=== PATIENT | male | born 1995 | race Caucasian/White ===

== ENCOUNTER → 2021-03-07 08:05 | Outpatient (CLI) | payer OTHER, SELFPAY ==
[2021-03-07] MEDS: COVID-19 VACC #1, MRNA(MOD) 100 MCG/0.5 ML VIAL IM (08:13)
== END ==
PROVIDERS: Visit Provider Internal Medicine
DX: Z23 Encounter for immunization (principal)
CPT/HCPCS: 0011A; 91301

== ENCOUNTER → 2021-04-12 08:04 | Outpatient (CLI) | payer OTHER, SELFPAY ==
[2021-04-12] MEDS: COVID-19 VACC #2, MRNA(MOD) 100 MCG/0.5 ML VIAL IM (08:18)
== END ==
PROVIDERS: Visit Provider Internal Medicine
DX: Z23 Encounter for immunization (principal)
CPT/HCPCS: 0012A; 91301

== ENCOUNTER 2022-10-20 09:13 | Emergency (ER) | payer OTHER, MEDICAID, SELFPAY ==
[2022-10-20 09:21] VITALS: BP 127/76; PULSE 118; RESP 24; TEMP 37.2; O2SAT 97; BMI 21.9
[2022-10-20 10:37] LABS: Influenza A - CEPHEID Flu A NEGATIVE (NEGATIVE); Influenza B - CEPHEID Flu B NEGATIVE (NEGATIVE); Respiratory Syncytial Virus Negative (Negative)
[2022-10-20 10:42] LABS: COVID-19 CEPHEID 4-PLEX PCR Negative (Negative)
--- NOTE | 2022-10-20 11:07 | ED.NAVMDI ---
HPI - Nausea/Vomiting/Diarrhea General Chief complaint: Nausea/Vomiting/Diarrhea Stated complaint: no appetite, mucus in stool, SOB, Insomia, anxiety Time Seen by Provider: 10/20/22 11:07 Source: patient Mode of arrival: Ambulatory History of Present Illness HPI Narrative: Patient is a 27-year-old male who does suffer from anxiety presents today with about 1 week of diarrhea and nausea. He is reports significant decreased oral intake but is tolerating quite a bit of water. Had mucousy like diarrhea ongoing for more than a week. He said this morning it was significantly more. He denies any blood. He and his partner both got similar symptoms after eating take out. He denies any headache fever. He sometimes feels short of breath. He is noted to be mildly tachycardic. He overall is extremely anxious and nervous that something more severe might be going on. Related Data Previous Rx's Medication Instructions Recorded hydroxyzine HCl 25 mg tablet 50 mg PO BEDTIME PRN anxiety #60 06/20/21 tabs ondansetron 4 mg disintegrating 4 mg PO Q8H PRN nausea and 10/20/22 tablet vomiting #10 tabs Allergies Allergy/AdvReac Type Severity Reaction Status Date / Time No Known Drug Allergies Allergy Verified 10/20/22 09:27 Review of Systems Review of Systems Narrative: GENERAL: Denies chills, fatigue, malaise, fever, sweats, travel HEENT: Denies sinus pain, ear pain, sore throat, difficulty swallowing, neck pain RESPIRATORY: Denies dyspnea, cough, wheezing, hemoptysis, sputum. CARDIOVASCULAR: Denies chest pain, palpitations, orthopnea, edema GASTROINTESTINAL: See HPI : Denies dysuria, frequency, incontinence, hematuria, urinary retention, flank pain. MUSCULOSKELETAL: Denies weakness, joint pain, or bony pain SKIN: No rash, no erythema, no pruritus NEUROLOGIC: Denies weakness, dizziness, headache, numbness, change in speech, confusion PSYCHIATRIC: No concerning psychosocial issues. 12 point review of systems is negative except for those stated above and HPI Patient History Medical History Anxiety (~2008) Depression (~2008) Obsessive compulsive disorder Family History Father Depression Mental health problem Mother Mental health problem Hypertension History of bipolar disorder Grandmother Hypertension Mental health problem Grandmother Mental health problem Social History Smoking Status: Former smoker alcohol intake: never substance use type: does not use Smoking Status: Former smoker alcohol intake frequency: other Substance Use Type: does not use Exam Initial Vital Signs Initial Vital Signs: Vital Signs Temperature 98.9 F 10/20/22 09:21 Pulse Rate 118 H 10/20/22 09:21 Respiratory Rate 24 10/20/22 09:21 Blood Pressure 127/76 10/20/22 09:21 Pulse Oximetry 97 10/20/22 09:21 Oxygen Delivery Method 10/20/22 09:21 GENERAL: Alert anxious 27-year-old male HEENT: Head atraumatic,EOMI, pupils reactive, face symmetric, moist mucous membranes CARDIOVASCULAR: Mildly tachycardic no murmurs RESPIRATORY: Breath sounds equal bilaterally, no wheezes rales or rhonchi. ABDOMEN: Soft, nontender. Normoactive bowel sounds all 4 quadrants. No guarding or rebound. EXTREMITIES: Normal range of motion, no clubbing or edema. Neurovascularly intact NEUROLOGICAL: Alert and oriented x4.Normal gait and speech. SKIN: Warm, dry, no laceration, no petechiae, no rashes or lesions. Course Orders Ordered: ED Orders 10/20/22 11:16 Chest [XR chest 1V] Stat 10/20/22 11:20 CBC Auto Diff [Complete Blood Count AUTO DIFF] Stat CMP [Comprehensive Metabolic Panel] Stat GI Panel (Film Array) Stat Discontinued Medications Lorazepam (Lorazepam 2 Mg/Ml Inj) 0.5 mg IV NOW ONE Stop: 10/20/22 11:19 Last Admin: 10/20/22 11:38 Dose: 0.5 mg Documented By: KEN Vital Signs Vital signs: Vital Signs - 8 hr 10/20/22 11:36 10/20/22 11:40 10/20/22 11:40 Pulse Rate 100 H 113 H Respiratory Rate Blood Pressure 133/73 Pulse Oximetry 98 100 Oxygen Delivery Method Room Air 10/20/22 12:42 Pulse Rate 95 H Respiratory Rate 16 Blood Pressure 121/75 Pulse Oximetry 98 Oxygen Delivery Method Room Air MDM - Nausea/Vomiting/Diarrhea Lab Data Result diagrams: 10/20/22 11:20 10/20/22 11:20 Labs: Lab Results 10/20/22 10/20/22 10/20/22 Range/Units 09:32 11:20 11:20 WBC 9.8 (4.5-11.0) X10^3/uL RBC 4.94 (4.5-5.9) X10^6/uL Hgb 13.9 (13.5-17.5) g/dL Hct 42.4 (41-53) % MCV 85.8 (80-100) fL MCH 28.1 (26-34) PG MCHC 32.8 (30-36) % RDW 13.2 (11.6-14.8) % Plt Count 270 (150-400) X10^3/uL Neut % (Auto) 68.0 (50-75) % Lymph % (Auto) 19.6 L (25-40) % [place] % (Auto) 11.1 (3-14) % Eos % (Auto) 0.7 L (2-4) % Baso % (Auto) 0.6 (0-2) % Neut # (Auto) 6700 (9034-0832) /uL Lymph # (Auto) 1900 (5465-5819) /uL [place] # (Auto) 1100 H (0-900) /uL Eos # (Auto) 100 (0-450) /uL Baso # (Auto) 100 (0-100) /uL Sodium 139 (137-145) mmol/L Potassium 3.6 (3.4-5.1) mmol/L Chloride 102 (98-107) mmol/L Carbon Dioxide 24 (22-32) mmol/L BUN 13 (9-20) mg/dL Creatinine 0.65 L (0.66-1.25) mg/dL Estimated GFR > 60 (>60) mL/min BUN/Creatinine Ratio 20.0 (6-22) Glucose 100 (70-100) mg/dL Calcium 9.5 (8.4-10.2) mg/dL Total Bilirubin 1.1 (0.2-1.3) mg/dL AST 24 (17-59) IU/L ALT 23 (<50) IU/L Alkaline Phosphatase 72 (38-126) U/L Total Protein 8.7 H (6.3-8.2) g/dL Albumin 5.0 (3.5-5.0) g/dL Globulin 3.7 (1.7-4.1) g/dL Albumin/Globulin Ratio 1.4 (1.0-2.8) Stl C. cayetanensis PCR (Not Detect) Stool Rotavirus (PCR) (Not Detect) Stool Adenovirus (PCR) (Not Detect) Stool Astrovirus (PCR) (Not Detect) Stool Cryptosporidium PCR (Not Detect) Stl E.coli Shiga Tox PCR (Not Detect) St Sh/Enteroin Ecoli PCR (Not Detect) Stool E coli O157 PCR Stl Enterotoxigenic E PCR (Not Detect) Stool EPEC (PCR) (Not Detect) Stl E. histolytica PCR (Not Detect) Stool Giardia Lamblia PCR (Not Detect) Stool Sapovirus (PCR) (Not Detect) Stl P. shigelloides PCR (Not Detect) St Y.enterocolitica PCR (Not Detect) Stool Vibrio (PCR) (Not Detect) Stl Vibrio cholerae PCR (Not Detect) Stl Enteroaggr Ecoli PCR (Not Detect) Stl Norovirus GI/GII PCR (Not Detect) Campylobacter (PCR) (Not Detect) C. difficile Tox (PCR) (Not Detect) SARS-CoV-2 (PCR) Negative (Negative) Influenza A (RT-PCR) Flu a negative (NEGATIVE) Influenza B (RT-PCR) Flu b negative (NEGATIVE) RSV (PCR) Negative (Negative) Salmonella (PCR) (Not Detect) 10/20/22 Range/Units 11:20 WBC (4.5-11.0) X10^3/uL RBC (4.5-5.9) X10^6/uL Hgb (13.5-17.5) g/dL Hct (41-53) % MCV (80-100) fL MCH (26-34) PG MCHC (30-36) % RDW (11.6-14.8) % Plt Count (150-400) X10^3/uL Neut % (Auto) (50-75) % Lymph % (Auto) (25-40) % [place] % (Auto) (3-14) % Eos % (Auto) (2-4) % Baso % (Auto) (0-2) % Neut # (Auto) (1253-9103) /uL Lymph # (Auto) (7811-7575) /uL [place] # (Auto) (0-900) /uL Eos # (Auto) (0-450) /uL Baso # (Auto) (0-100) /uL Sodium (137-145) mmol/L Potassium (3.4-5.1) mmol/L Chloride (98-107) mmol/L Carbon Dioxide (22-32) mmol/L BUN (9-20) mg/dL Creatinine (0.66-1.25) mg/dL Estimated GFR (>60) mL/min BUN/Creatinine Ratio (6-22) Glucose (70-100) mg/dL Calcium (8.4-10.2) mg/dL Total Bilirubin (0.2-1.3) mg/dL AST (17-59) IU/L ALT (<50) IU/L Alkaline Phosphatase (38-126) U/L Total Protein (6.3-8.2) g/dL Albumin (3.5-5.0) g/dL Globulin (1.7-4.1) g/dL Albumin/Globulin Ratio (1.0-2.8) Stl C. cayetanensis PCR Not detected (Not Detect) Stool Rotavirus (PCR) Not detected (Not Detect) Stool Adenovirus (PCR) Not detected (Not Detect) Stool Astrovirus (PCR) Not detected (Not Detect) Stool Cryptosporidium PCR Not detected (Not Detect) Stl E.coli Shiga Tox PCR Not detected (Not Detect) St Sh/Enteroin Ecoli PCR Not detected (Not Detect) Stool E coli O157 PCR TNP Stl Enterotoxigenic E PCR Not detected (Not Detect) Stool EPEC (PCR) Not detected (Not Detect) Stl E. histolytica PCR Not detected (Not Detect) Stool Giardia Lamblia PCR Not detected (Not Detect) Stool Sapovirus (PCR) Not detected (Not Detect) Stl P. shigelloides PCR Not detected (Not Detect) St Y.enterocolitica PCR Not detected (Not Detect) Stool Vibrio (PCR) Not detected (Not Detect) Stl Vibrio cholerae PCR Not detected (Not Detect) Stl Enteroaggr Ecoli PCR Not detected (Not Detect) Stl Norovirus GI/GII PCR Not detected (Not Detect) Campylobacter (PCR) Not detected (Not Detect) C. difficile Tox (PCR) Not detected (Not Detect) SARS-CoV-2 (PCR) (Negative) Influenza A (RT-PCR) (NEGATIVE) Influenza B (RT-PCR) (NEGATIVE) RSV (PCR) (Negative) Salmonella (PCR) Not detected (Not Detect) Imaging Data Abdominal x-ray: Radiologist's Impression: XRay Report Signed Patient: Nasim Portillo MR#: [id number] : 1995 Acct:[id number] Age/Sex: 27 / M Date of Service: 10/20/22 Loc: ED Accession Number: [id number] ?? Procedure: XR chest 1V Ordering Provider: Sarah Trejo D.O. PROCEDURE:? XR CHEST 1V ? INDICATIONS:? sob ? TECHNIQUE:? One view of the chest was acquired.? ? COMPARISON:? None. ? FINDINGS:? ? Surgical changes and devices:? None.? ? Lungs and pleura:? Lungs are clear.? No pleural effusions or pneumothorax.? ? Mediastinum:? Mediastinal contours appear normal.? Heart size is normal.? ? Bones and chest wall:? No suspicious bony lesions.? Overlying soft tissues appear unremarkable.? ? IMPRESSION:? No acute cardiopulmonary findings. ? ? Dictated by: Hodan Meadows M.D. on 10/20/2022 at 11:32 ? ? MDM Narrative Medical decision making narrative: Patient overall very anxious mildly tachycardic which does improve. He is given some Ativan to help calm him down. Chest x-ray is negative. I do not suspect pulmonary embolism although it was considered. Blood work is overall reassuring electrolytes do not show any significant hyponatremia which I was concerned about with the amount of water he was drinking. Renal function is within normal limits. He does not have any significant leukocytosis he is not anemic. GI panel is pending. I am happy to call patient with those results. At this time he does not have any high-risk criteria to require antibiotics. However it has been going on for about 7 days if positive he may require antibiotics. GI panel his back and is negative. I did call and update patient he does not require any antibiotics. Patient is still having some shortness of breath. X-ray and viral panel is negative. He states both he and his partner are having some shortness of breath. At this time I see no need for any further workup Differential diagnosis includes acute coronary syndrome pneumonia pneumothorax and PE. Discharge Plan Departure Patient Disposition: Home Clinical Impression: Anxiety, Gastroenteritis Instructions: Viral Gastroenteritis, DI for Viral Gastroenteritis -- Adult Activity Restrictions/Additional Instructions: *You have been diagnosed with gastroenteritis, anxiety *What to do: At this time increase diet as tolerated. Her blood work is overall reassuring. You do not have influenza COVID or RSV. Your x-ray is clear. I will call you with your stool sample results in a couple of hours. If you do not hear from me please feel free to call the emergency department they [phone]. *Continue to take medications as directed Zofran 4 mg every 8 hours if needed for nausea or vomiting -->sent to [facility] in [facility] [place] *Follow up with your primary care provider in 2-3 days or call [phone] *Return to ER if you should have dizziness lightheadedness passing out persistent vomiting not tolerating fluids or any new, worsening or concerning symptoms Prescriptions: New ondansetron 4 mg tablet,disintegrating 4 mg PO Q8H PRN (Reason: nausea and vomiting) Qty: 10 0RF No Action hydroxyzine HCl 25 mg tablet 50 mg PO BEDTIME PRN (Reason: anxiety) Qty: 60 5RF Visit Report Forms: Patient Portal/API
--- NOTE | 2022-10-20 11:16 | DI.RAD.S_ITS ---
PROCEDURE: XR CHEST 1V INDICATIONS: sob TECHNIQUE: One view of the chest was acquired. COMPARISON: None. FINDINGS: Surgical changes and devices: None. Lungs and pleura: Lungs are clear. No pleural effusions or pneumothorax. Mediastinum: Mediastinal contours appear normal. Heart size is normal. Bones and chest wall: No suspicious bony lesions. Overlying soft tissues appear unremarkable. IMPRESSION: No acute cardiopulmonary findings. Dictated by: Hodan Meadows M.D. on 10/20/2022 at 11:32 Approved by: Hodan Meadows M.D. on 10/20/2022 at 11:33
[2022-10-20 11:36] VITALS: PULSE 100; O2SAT 98
[2022-10-20] MEDS: LORazepam 2 MG/ML INJ 0.5 MG IV (11:38)
[2022-10-20 11:40] VITALS: BP 133/73; PULSE 113; O2SAT 100
[2022-10-20 11:45] LABS: Add Manual Diff / Slide Review NO; Basophils Absolute Auto 100 /uL (0-100); Basophils Percent Auto 0.6 % (0-2); Eosinophils Absolute Auto 100 /uL (0-450); Eosinophils Percent Auto 0.7 % (2-4); Hematocrit 42.4 % (41-53); Hemoglobin 13.9 g/dL (13.5-17.5); Lymphocytes Absolute Auto 1900 /uL (1100-4500); Lymphocytes Percent Auto 19.6 % (25-40); Mean Corpuscular HGB Conc 32.8 % (30-36); Mean Corpuscular Hemoglobin 28.1 PG (26-34); Mean Corpuscular Volume 85.8 fL (80-100); Monocytes Absolute Auto 1100 /uL (0-900); Monocytes Percent Auto 11.1 % (3-14); Neutrophils Absolute Auto 6700 /uL (1500-7000); Platelet Count 270 X10^3/uL (150-400); Red Blood Cell Count 4.94 X10^6/uL (4.5-5.9); Red Cell Distribution Width 13.2 % (11.6-14.8); White Blood Cell Count 9.8 X10^3/uL (4.5-11.0)
[2022-10-20 11:51] LABS: Alanine Aminotransferase 23 IU/L (<50); Albumin Globulin Ratio 1.4 (1.0-2.8); Alkaline Phosphatase 72 U/L (38-126); Aspartate Aminotransferase 24 IU/L (17-59); Bilirubin Total 1.1 mg/dL (0.2-1.3); Blood Urea Nitrogen 13 mg/dL (9-20); Calcium 9.5 mg/dL (8.4-10.2); Carbon Dioxide 24 mmol/L (22-32); Chloride 102 mmol/L (98-107); Estimated Glomerular Filt Rate > 60 mL/min (>60); Globulin 3.7 g/dL (1.7-4.1); Glucose 100 mg/dL (70-100); HEMOLYSIS 23 (0-50); Potassium 3.6 mmol/L (3.4-5.1); Sodium 139 mmol/L (137-145); Total Protein 8.7 g/dL (6.3-8.2)
[2022-10-20 12:42] VITALS: BP 121/75; PULSE 95; RESP 16; O2SAT 98
[2022-10-20 13:55] LABS: Campylobacter Not Detected (Not Detect); Clostridium difficile toxin AB Not Detected (Not Detect); Plesiomonsa shigelloides Not Detected (Not Detect); Salmonella Not Detected (Not Detect); Vibrio Not Detected (Not Detect); Vibrio cholerae Not Detected (Not Detect)
[2022-10-20 13:56] LABS: Adenovirus F 40/41 Not Detected (Not Detect); Astrovirus Not Detected (Not Detect); Cryptosporidium Not Detected (Not Detect); Cyclospora cayetanensis Not Detected (Not Detect); Entamoeba histolytica Not Detected (Not Detect); Enteroaggregative E.coli Not Detected (Not Detect); Enteropathogenic E.coli Not Detected (Not Detect); Enterotoxigenic E.coli It/st Not Detected (Not Detect); Giardia lamblia Not Detected (Not Detect); Norovirus GI/GII Not Detected (Not Detect); Rotavirus A Not Detected (Not Detect); Sapovirus Not Detected (Not Detect); Shiga-like toxin-prod E.coli Not Detected (Not Detect); Shigella/Enteroinvasive E.coli Not Detected (Not Detect); Yersinia enterocolitica Not Detected (Not Detect)
--- NOTE | 2022-10-20 14:17 | PC.NURSE ---
Updated pt w/ test results. No questions or concerns.
== END 2022-10-20 12:46 | disposition home or self-care (01) ==
PROVIDERS: Emergency Provider Emergency Medicine
DX: K52.9 Noninfective gastroenteritis and colitis, unspecified (principal); F41.9 Anxiety disorder, unspecified
CPT/HCPCS: 0241U; 71045; 80053; 85025; 87507; 96374; 99283; 99284; J2060

== ENCOUNTER 2022-10-21 10:49 | Emergency (ER) | payer OTHER, MEDICAID, SELFPAY ==
[2022-10-21 11:10] VITALS: BP 128/59; PULSE 104; RESP 16; TEMP 36.8; O2SAT 97; BMI 21.9
--- NOTE | 2022-10-21 13:46 | ED.ABDPAIN ---
HPI - Abdominal Pain General Chief Complaint: Abdominal Pain Stated Complaint: can't keep water down,sob,vomiting Time Seen by Provider: 10/21/22 11:10 Source: patient Mode of arrival: Ambulatory History of Present Illness HPI narrative: Patient is a 27-year-old male history of severe OCD and anxiety presenting today with shortness of breath and vomiting. He was seen evaluated yesterday. He is had about 8 days of some diarrhea decreased intake. He was given Zofran he had some basic blood work done yesterday and chest x-ray. He states that he went home after receiving Ativan in the ED and felt a lot better he was able to shower. This morning he drank an ensure and the knee had water and then he vomited. He did not cone picker his Zofran. He now feels like he feels test heaviness in that he short of breath. He is very adamant that he is going to . He says that previously is OCD was controlled but now he obsesses about not being able to sleep. He feels like if he can eat anything that he is going to . Blood work yesterday was overall reassuring. He has not traveled anywhere he has no palpitations. He denies any fever or chills Related Data Previous Rx's Medication Instructions Recorded hydroxyzine HCl 25 mg tablet 50 mg PO BEDTIME PRN anxiety #60 06/20/21 tabs ondansetron 4 mg disintegrating 4 mg PO Q8H PRN nausea and 10/20/22 tablet vomiting #10 tabs albuterol sulfate 90 mcg/actuation 2 puff inhalation Q4-6H PRN 10/21/22 aerosol inhaler shortness of breath or wheezing #8.5 grams alprazolam 0.5 mg tablet (Xanax) 0.5 mg PO DAILY PRN anxiety #3 tabs 10/21/22 Allergies Allergy/AdvReac Type Severity Reaction Status Date / Time No Known Drug Allergies Allergy Verified 10/20/22 09:27 Review of Systems Review of Systems ROS Unobtainable: All systems reviewed & are unremarkable except as noted in HPI and below Patient History Medical History Anxiety (~2008) Depression (~2008) Obsessive compulsive disorder Family History Father Depression Mental health problem Mother Mental health problem Hypertension History of bipolar disorder Grandmother Hypertension Mental health problem Grandmother Mental health problem Social History Smoking Status: Former smoker alcohol intake: never substance use type: does not use Smoking Status: Former smoker alcohol intake frequency: other Substance Use Type: does not use Exam Initial Vital Signs Initial Vital Signs: Vital Signs Temperature 98.3 F 10/21/22 11:10 Pulse Rate 104 H 10/21/22 11:10 Respiratory Rate 16 10/21/22 11:10 Blood Pressure 128/59 L 10/21/22 11:10 Pulse Oximetry 97 10/21/22 11:10 Oxygen Delivery Method 10/21/22 11:10 GENERAL: Very anxious 27-year-old male no acute distress and in no acute distress. HEENT: Head atraumatic,EOMI, pupils reactive, face symmetric, moist mucous membranes CARDIOVASCULAR: Regular rate and rhythm without murmurs, rubs or gallops. RESPIRATORY: Breath sounds equal bilaterally, no wheezes rales or rhonchi. ABDOMEN: Soft, nontender. Normoactive bowel sounds all 4 quadrants. No guarding or rebound. EXTREMITIES: Normal range of motion, no clubbing or edema. Neurovascularly intact NEUROLOGICAL: Alert and oriented x4.Normal gait and speech. SKIN: Warm, dry, no laceration, no petechiae, no rashes or lesions. Course Orders Ordered: ED Orders 10/21/22 15:23 Chest [XR chest 2V] Stat Discontinued Medications Lorazepam (Lorazepam 0.5 Mg Tablet) 1 mg PO NOW ONE Stop: 10/21/22 14:02 Last Admin: 10/21/22 14:31 Dose: 1 mg Documented By: KAMILA Ondansetron HCl (Ondansetron 4 Mg Odt) 4 mg SL NOW ONE Stop: 10/21/22 12:35 Last Admin: 10/21/22 14:31 Dose: Not Given Documented By: KAMILA Vital Signs Vital signs: Vital Signs - 8 hr 10/21/22 11:10 10/21/22 15:32 Temperature 98.3 F 98.3 F Pulse Rate 104 H 94 H Respiratory Rate 16 20 Blood Pressure 128/59 L 127/75 Pulse Oximetry 97 100 Oxygen Delivery Method Room Air Room Air MDM - Abdominal Pain Imaging Data Chest x-ray: My Impression: No pneumothorax or cardiopulmonary process Radiologist's Impression: XRay Report Signed Patient: Nasim Portillo MR#: [id number] : 1995 Acct:[id number] Age/Sex: 27 / M Date of Service: 10/21/22 Loc: ED Accession Number: [id number] ?? Procedure: XR chest 2V Ordering Provider: Sarah Trejo D.O. PROCEDURE:? XR CHEST 2V ? INDICATIONS:? sob ? TECHNIQUE:? 2 views of the chest were acquired.? ? COMPARISON:? [facility], , XR CHEST 1V, 10/20/2022, 11:15. ? FINDINGS:? ? Surgical changes and devices:? None.? ? Lungs and pleura:? Lungs are clear.? No pleural effusions or pneumothorax.? ? Mediastinum:? Mediastinal contours are normal.? Heart size is normal.? ? Bones and chest wall:? No suspicious bony abnormalities.? Soft tissues appear unremarkable.? ? IMPRESSION:? No acute cardiopulmonary pathology. ? ? Dictated by: Filiberto Diaz M.D. on 10/21/2022 at 15:42 ? ? Approved by: Filiberto Diaz M.D. on 10/21/2022 at 15:42 ? [facility] Narrative Medical decision making narrative: I have spent a lot of time talking to the patient. Is very clear that he is extremely anxious. His partner has had similar GI symptoms are resolving. Patient reports having OCD since the age of 13. He is not on any medication for it. He reports being obsessed about not being able to sleep for a year and now he is upset that he is not able to eat or drink anything although it does sound like he is able to get an ensure down. His viral panel and blood work yesterday was negative his chest x-ray was also negative yesterday. I discussed with him possibility of doing more blood work they do not think it is necessary at this time. We also discussed if his anxiety and OCD was causing him to be gravely disabled and offered mental health facility. At this time he declines which is reasonable he is not gravely disabled but it is becoming more of a problem. I agree to give him 2 Xanax pills and an albuterol inhaler. I reassured both he and his partner that he can come back at any time if he feels like his anxiety OCD or shortness of breath is getting worse. Other considerations of shortness of breath include pulmonary embolism pneumonia acute coronary syndrome Discharge Plan Departure Patient Disposition: Home Clinical Impression: Anxiety Instructions: Obsessive-Compulsive Disorder, Anxiety Disorders Activity Restrictions/Additional Instructions: *You have been diagnosed with anxiety OCD *What to do: At this time I strongly recommend that you see Psychiatry to help get on medications for OCD. *Continue to take medications as directed--> [facility] Xanax 0.5 mg only if needed for severe anxiety this can be addictive and you will not be getting more prescriptions from the emergency department Albuterol 1-2 puffs with inhaler if needed for shortness *Follow up with your primary care provider in 2-3 days or call [phone] *Return to ER if you should have increased shortness of breath, severe anxiety [or] any new, worsening or concerning symptoms Prescriptions: New alprazolam [Xanax] 0.5 mg tablet 0.5 mg PO DAILY PRN (Reason: anxiety) Qty: 3 0RF albuterol sulfate 90 mcg/actuation HFA aerosol inhaler 2 puff INHALATION Q4-6H PRN (Reason: shortness of breath or wheezing) Qty: 8.5 0RF No Action hydroxyzine HCl 25 mg tablet 50 mg PO BEDTIME PRN (Reason: anxiety) Qty: 60 5RF ondansetron 4 mg tablet,disintegrating 4 mg PO Q8H PRN (Reason: nausea and vomiting) Qty: 10 0RF Visit Report Forms: Patient Portal/API
[2022-10-21] MEDS: LORazepam 0.5 MG TABLET 1 MG PO (14:31)
--- NOTE | 2022-10-21 15:23 | DI.RAD.S_ITS ---
PROCEDURE: XR CHEST 2V INDICATIONS: sob TECHNIQUE: 2 views of the chest were acquired. COMPARISON: [facility], , XR CHEST 1V, 10/20/2022, 11:15. FINDINGS: Surgical changes and devices: None. Lungs and pleura: Lungs are clear. No pleural effusions or pneumothorax. Mediastinum: Mediastinal contours are normal. Heart size is normal. Bones and chest wall: No suspicious bony abnormalities. Soft tissues appear unremarkable. IMPRESSION: No acute cardiopulmonary pathology. Dictated by: Filiberto Diaz M.D. on 10/21/2022 at 15:42 Approved by: Filiberto Diaz M.D. on 10/21/2022 at 15:42
[2022-10-21 15:32] VITALS: BP 127/75; PULSE 94; RESP 20; TEMP 36.8; O2SAT 100
== END 2022-10-21 15:53 | disposition home or self-care (01) ==
PROVIDERS: Emergency Provider Emergency Medicine
DX: F41.9 Anxiety disorder, unspecified (principal); R11.10 Vomiting, unspecified; R06.02 Shortness of breath
CPT/HCPCS: 71046; 99283

== ENCOUNTER 2022-10-24 14:05 | Emergency (ER) | payer OTHER, MEDICAID, SELFPAY ==
[2022-10-24 14:21] VITALS: BP 130/81; PULSE 113; RESP 16; TEMP 37; O2SAT 97; BMI 20.3
--- NOTE | 2022-10-24 20:36 | PC.NURSE ---
This RN brought pt back to room. Pt admits thoughts of self-harm with a plan. Charge and his RN made aware.
--- NOTE | 2022-10-24 20:40 | PC.NURSE ---
Initial evaluation performed - pt appears withdrawn - speaking in full clear sentences - answers questions appropriately
--- NOTE | 2022-10-24 21:15 | PC.NURSE ---
Resting quietly - awaiting evaluation - no needs voiced
--- NOTE | 2022-10-24 22:00 | PC.NURSE ---
No changes at this time - boyfriend went home to get some belongings for the patient
--- NOTE | 2022-10-24 22:17 | ED_ITS ---
HPI - Medical Clearance General Chief complaint: Medical Clearance Stated complaint: weak/ loss of appetiate t-14 Time Seen by Provider: 10/24/22 22:17 Source: patient Mode of arrival: Ambulatory Related Information Previous Rx's Medication Instructions Recorded hydroxyzine HCl 25 mg tablet 50 mg PO BEDTIME PRN anxiety #60 06/20/21 tabs ondansetron 4 mg disintegrating 4 mg PO Q8H PRN nausea and 10/20/22 tablet vomiting #10 tabs albuterol sulfate 90 mcg/actuation 2 puff inhalation Q4-6H PRN 10/21/22 aerosol inhaler shortness of breath or wheezing #8.5 grams alprazolam 0.5 mg tablet (Xanax) 0.5 mg PO DAILY PRN anxiety #3 tabs 10/21/22 Allergies Allergy/AdvReac Type Severity Reaction Status Date / Time No Known Drug Allergies Allergy Verified 10/24/22 14:21 Patient History Medical History Anxiety (~2008) Depression (~2008) Obsessive compulsive disorder Family History Father Depression Mental health problem Mother Mental health problem Hypertension History of bipolar disorder Grandmother Hypertension Mental health problem Grandmother Mental health problem Social History Smoking Status: Former smoker alcohol intake: never substance use type: does not use Smoking Status: Former smoker alcohol intake frequency: other Substance Use Type: does not use Exam Initial Vital Signs Initial Vital Signs: Vital Signs Temperature 98.6 F 10/24/22 14:21 Pulse Rate 113 H 10/24/22 14:21 Respiratory Rate 16 10/24/22 14:21 Blood Pressure 130/81 10/24/22 14:21 Pulse Oximetry 97 10/24/22 14:21 Oxygen Delivery Method 10/24/22 14:21 MDM - Medical Clearance Lab Data Labs: Urine Dip Bedside Urine Glucose Negative Bedside Urine Bilirubin - Negative Bedside Urine Ketone - Negative Urine Specific [place] 1.010 Bedside Urine Occult Blood - Negative Bedside Urine pH 7.5 Bedside Urine Protein - Negative Bedside Urine Urobilinogen - Negative Bedside Urine Nitrite - Negative Bedside Urine Leukocytes - Negative Esterase Discharge Plan Departure Clinical Impression: Patient left without being seen Prescriptions: No Action hydroxyzine HCl 25 mg tablet 50 mg PO BEDTIME PRN (Reason: anxiety) Qty: 60 5RF ondansetron 4 mg tablet,disintegrating 4 mg PO Q8H PRN (Reason: nausea and vomiting) Qty: 10 0RF alprazolam [Xanax] 0.5 mg tablet 0.5 mg PO DAILY PRN (Reason: anxiety) Qty: 3 0RF albuterol sulfate 90 mcg/actuation HFA aerosol inhaler 2 puff INHALATION Q4-6H PRN (Reason: shortness of breath or wheezing) Qty: 8.5 0RF Referrals: Miscellaneous,Doctor, MD [Primary Care Provider] -
--- NOTE | 2022-10-24 22:20 | ED_ITS ---
HPI - General Adult <Rand Cha MD - Last Filed: 11/04/22 13:37> General Chief complaint: Medical Clearance Stated complaint: weak/ loss of appetiate t-14 Time Seen by Provider: 10/24/22 22:17 Source: patient Mode of arrival: Ambulatory History of Present Illness HPI narrative: 27-year-old gentleman with a lifetime history of anxiety, OCD components and eating disorder issues. Was 1st started on Prozac at the age of 13 but did not end up taking this. 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 Much of his anxiety has been triggered by illness and fear of illness. Worsened at the beginning of the COVID pandemic and dramatically worse in the last 2 weeks after both he and his partner had a slight gastroenteritis with mild diarrhea. Both gentleman have resolved their symptoms however the acute illness has triggered dramatic fears of eating which then transformed into fear of dying because he is going to start which then leads to perseverating anxiety and inability to sleep. States that he had been doing fairly well up to this episode of gastroenteritis with his weight as high as 145 lb and in the last 2 weeks has dropped down to a current low of 133 lb (9% decrease). Complains dry mouth and is able to have small amounts of food if he knows he is in a safe setting, for example he was able to have a protein bar while waiting in the lobby prior to being seen in the emergency department. Most of the time his anxiety is so overwhelming that it causes significant nausea precluding eating and causing actual emesis as well. He feels that it is spiraling out of control and he is open to the idea of hospitalization at this time. States that he is becoming more and more fearful of all germs, food, starving and . Does not describe any recent fevers, cough, chills, chest pain, palpitations, headaches. Related Data Previous Rx's Medication Instructions Recorded albuterol sulfate 90 mcg/actuation 2 puff inhalation Q4-6H PRN 10/21/22 aerosol inhaler shortness of breath or wheezing #8.5 grams clonazepam 0.5 mg tablet 0.5 mg PO BID anxiety #60 tabs 10/31/22 fluoxetine 10 mg capsule (Prozac) 10 mg PO DAILY #30 caps 10/31/22 hydroxyzine HCl 10 mg tablet 10 mg PO QID anxiety #120 tabs 10/31/22 ondansetron 4 mg disintegrating 4 mg PO Q8H PRN nausea and 10/31/22 tablet vomiting #60 tabs Allergies Allergy/AdvReac Type Severity Reaction Status Date / Time No Known Drug Allergies Allergy Verified 10/31/22 15:36 Review of Systems <Rand Cha MD - Last Filed: 11/04/22 13:37> Review of Systems Narrative: Remainder of complete review of systems is otherwise unremarkable except for that included in the HPI. Patient History <Rand Cha MD - Last Filed: 11/04/22 13:37> Medical History Anxiety (~2008) Depression (~2008) Obsessive compulsive disorder Family History Father Depression Mental health problem Mother Mental health problem Hypertension History of bipolar disorder Grandmother Hypertension Mental health problem Grandmother Mental health problem Social History Smoking Status: Former smoker alcohol intake: never substance use type: does not use Smoking Status: Former smoker alcohol intake frequency: other Substance Use Type: does not use Exam <Rand Cha MD - Last Filed: 11/04/22 13:37> Initial Vital Signs Initial Vital Signs: Vital Signs Temperature 98.6 F 10/24/22 14:21 Pulse Rate 113 H 10/24/22 14:21 Respiratory Rate 16 10/24/22 14:21 Blood Pressure 130/81 10/24/22 14:21 Pulse Oximetry 97 10/24/22 14:21 Oxygen Delivery Method 10/24/22 14:21 General: Healthy appearing, quite anxious with psychomotor agitation and picking at his clothing in the bed clothing. Able to give a complete and coherent history. Well-nourished well-developed HEENT: Moist mucous membranes, normal sclera with reactive pupils, Neck: No JVD, supple Respiratory: Lungs are clear to auscultation, no wheezing no rales no rhonchi. Full and symmetrical air movement Cardiac: Regular rate and rhythm no murmurs no bruits Abdomen: Soft, nontender, good bowel tones, no flank pain Skin: Warm and dry, no rashes Neurologic: Grossly neurologically intact with no obvious asymmetries or abnormalities Extremities: No trauma, well perfused Psych: Cooperative, appropriate insight, good eye contact, appropriate range of emotions, normal thought content and fluent speech, significant anxiety with small self soothing behaviors <Zeynep Oswald, DO - Last Filed: 10/30/22 19:16> Initial Vital Signs Initial Vital Signs: Vital Signs Temperature 98.6 F 10/24/22 14:21 Pulse Rate 113 H 10/24/22 14:21 Respiratory Rate 16 10/24/22 14:21 Blood Pressure 130/81 10/24/22 14:21 Pulse Oximetry 97 10/24/22 14:21 Oxygen Delivery Method 10/24/22 14:21 <Sarah Trejo DO - Last Filed: 10/29/22 07:12> Initial Vital Signs Initial Vital Signs: Vital Signs Temperature 98.6 F 10/24/22 14:21 Pulse Rate 113 H 10/24/22 14:21 Respiratory Rate 16 10/24/22 14:21 Blood Pressure 130/81 10/24/22 14:21 Pulse Oximetry 97 10/24/22 14:21 Oxygen Delivery Method 10/24/22 14:21 <Elvis Peterson MD - Last Filed: 11/03/22 08:22> Initial Vital Signs Initial Vital Signs: Vital Signs Temperature 98.6 F 10/24/22 14:21 Pulse Rate 113 H 10/24/22 14:21 Respiratory Rate 16 10/24/22 14:21 Blood Pressure 130/81 10/24/22 14:21 Pulse Oximetry 97 10/24/22 14:21 Oxygen Delivery Method 10/24/22 14:21 <Augusto Mcgovern DO - Last Filed: 10/28/22 15:40> Initial Vital Signs Initial Vital Signs: Vital Signs Temperature 98.6 F 10/24/22 14:21 Pulse Rate 113 H 10/24/22 14:21 Respiratory Rate 16 10/24/22 14:21 Blood Pressure 130/81 10/24/22 14:21 Pulse Oximetry 97 10/24/22 14:21 Oxygen Delivery Method 10/24/22 14:21 Course <Rand Cha MD - Last Filed: 11/04/22 13:37> Orders Ordered: Discontinued Medications Clonazepam (Clonazepam 0.5 Mg Tablet) 1 mg PO NOW ONE Stop: 10/24/22 22:41 Last Admin: 10/24/22 23:16 Dose: 1 mg Documented By: VIVEK Clonazepam (Clonazepam 0.5 Mg Tablet) 0.5 mg PO NOW ONE Stop: 10/25/22 14:07 Last Admin: 10/25/22 14:11 Dose: 0.5 mg Documented By: VIVEK(2) Sodium Chloride (Normal Saline 0.9%) 1,000 mls @ 1,000 mls/hr IV BOLUS ONE Stop: 10/24/22 23:39 Last Infusion: 10/25/22 01:08 Dose: 0 mls/hr Documented By: Admin: 10/24/22 23:17 Dose: 1,000 mls/hr Documented By: VIVEK Lorazepam (Lorazepam 0.5 Mg Tablet) 2 mg PO NOW ONE Stop: 10/25/22 00:23 Last Admin: 10/25/22 01:09 Dose: 2 mg Documented By: VIVEK Lorazepam (Lorazepam 0.5 Mg Tablet) 2 mg PO NOW ONE Stop: 10/25/22 23:23 Last Admin: 10/26/22 02:59 Dose: Not Given Documented By: ALEJANDRO Lorazepam (Lorazepam 0.5 Mg Tablet) 1 mg PO NOW ONE Stop: 10/26/22 16:10 Last Admin: 10/26/22 16:14 Dose: 1 mg Documented By: DEANA Lorazepam (Lorazepam 0.5 Mg Tablet) 1 mg PO NOW ONE Stop: 10/27/22 09:40 Last Admin: 10/27/22 09:45 Dose: 1 mg Documented By: PHYLLIS Lorazepam (Lorazepam 0.5 Mg Tablet) 1 mg PO NOW ONE Stop: 10/28/22 08:48 Last Admin: 10/28/22 08:51 Dose: 1 mg Documented By: DEANA(2) Ondansetron HCl (Ondansetron 4 Mg/2 Ml Inj) 4 mg IV NOW ONE Stop: 10/24/22 22:41 Last Admin: 10/24/22 23:17 Dose: 4 mg Documented By: VIVEK Ondansetron HCl (Ondansetron 4 Mg Odt) 4 mg SL NOW ONE Stop: 10/27/22 09:39 Last Admin: 10/27/22 09:43 Dose: 4 mg Documented By: PHYLLIS Ondansetron HCl (Ondansetron 4 Mg Odt) 4 mg SL NOW ONE Stop: 10/28/22 08:45 Last Admin: 10/28/22 08:51 Dose: 4 mg Documented By: DEANA(2) Vital Signs Vital signs: Vital Signs - 8 hr 10/28/22 15:19 Pulse Rate 93 H Blood Pressure 125/88 Pulse Oximetry 95 Oxygen Delivery Method Room Air <Zeynep Oswald DO - Last Filed: 10/30/22 19:16> Orders Ordered: Discontinued Medications Clonazepam (Clonazepam 0.5 Mg Tablet) 1 mg PO NOW ONE Stop: 10/24/22 22:41 Last Admin: 10/24/22 23:16 Dose: 1 mg Documented By: VIVEK Clonazepam (Clonazepam 0.5 Mg Tablet) 0.5 mg PO NOW ONE Stop: 10/25/22 14:07 Last Admin: 10/25/22 14:11 Dose: 0.5 mg Documented By: VIVEK(2) Sodium Chloride (Normal Saline 0.9%) 1,000 mls @ 1,000 mls/hr IV BOLUS ONE Stop: 10/24/22 23:39 Last Infusion: 10/25/22 01:08 Dose: 0 mls/hr Documented By: Admin: 10/24/22 23:17 Dose: 1,000 mls/hr Documented By: VIVEK Lorazepam (Lorazepam 0.5 Mg Tablet) 2 mg PO NOW ONE Stop: 10/25/22 00:23 Last Admin: 10/25/22 01:09 Dose: 2 mg Documented By: VIVEK Lorazepam (Lorazepam 0.5 Mg Tablet) 2 mg PO NOW ONE Stop: 10/25/22 23:23 Last Admin: 10/26/22 02:59 Dose: Not Given Documented By: ALEJANDRO Lorazepam (Lorazepam 0.5 Mg Tablet) 1 mg PO NOW ONE Stop: 10/26/22 16:10 Last Admin: 10/26/22 16:14 Dose: 1 mg Documented By: DEANA Lorazepam (Lorazepam 0.5 Mg Tablet) 1 mg PO NOW ONE Stop: 10/27/22 09:40 Last Admin: 10/27/22 09:45 Dose: 1 mg Documented By: PHYLLIS Lorazepam (Lorazepam 0.5 Mg Tablet) 1 mg PO NOW ONE Stop: 10/28/22 08:48 Last Admin: 10/28/22 08:51 Dose: 1 mg Documented By: DEANA(2) Ondansetron HCl (Ondansetron 4 Mg/2 Ml Inj) 4 mg IV NOW ONE Stop: 10/24/22 22:41 Last Admin: 10/24/22 23:17 Dose: 4 mg Documented By: VIVEK Ondansetron HCl (Ondansetron 4 Mg Odt) 4 mg SL NOW ONE Stop: 10/27/22 09:39 Last Admin: 10/27/22 09:43 Dose: 4 mg Documented By: PHYLLIS Ondansetron HCl (Ondansetron 4 Mg Odt) 4 mg SL NOW ONE Stop: 10/28/22 08:45 Last Admin: 10/28/22 08:51 Dose: 4 mg Documented By: DEANA(2) Vital Signs Vital signs: Vital Signs - 8 hr 10/28/22 15:19 Pulse Rate 93 H Blood Pressure 125/88 Pulse Oximetry 95 Oxygen Delivery Method Room Air <Sarah Trejo DO - Last Filed: 10/29/22 07:12> Orders Ordered: Discontinued Medications Clonazepam (Clonazepam 0.5 Mg Tablet) 1 mg PO NOW ONE Stop: 10/24/22 22:41 Last Admin: 10/24/22 23:16 Dose: 1 mg Documented By: VIVEK Clonazepam (Clonazepam 0.5 Mg Tablet) 0.5 mg PO NOW ONE Stop: 10/25/22 14:07 Last Admin: 10/25/22 14:11 Dose: 0.5 mg Documented By: VIVEK(2) Sodium Chloride (Normal Saline 0.9%) 1,000 mls @ 1,000 mls/hr IV BOLUS ONE Stop: 10/24/22 23:39 Last Infusion: 10/25/22 01:08 Dose: 0 mls/hr Documented By: Admin: 10/24/22 23:17 Dose: 1,000 mls/hr Documented By: VIVEK Lorazepam (Lorazepam 0.5 Mg Tablet) 2 mg PO NOW ONE Stop: 10/25/22 00:23 Last Admin: 10/25/22 01:09 Dose: 2 mg Documented By: VIVEK Lorazepam (Lorazepam 0.5 Mg Tablet) 2 mg PO NOW ONE Stop: 10/25/22 23:23 Last Admin: 10/26/22 02:59 Dose: Not Given Documented By: ALEJANDRO Lorazepam (Lorazepam 0.5 Mg Tablet) 1 mg PO NOW ONE Stop: 10/26/22 16:10 Last Admin: 10/26/22 16:14 Dose: 1 mg Documented By: DEANA Lorazepam (Lorazepam 0.5 Mg Tablet) 1 mg PO NOW ONE Stop: 10/27/22 09:40 Last Admin: 10/27/22 09:45 Dose: 1 mg Documented By: PHYLLIS Lorazepam (Lorazepam 0.5 Mg Tablet) 1 mg PO NOW ONE Stop: 10/28/22 08:48 Last Admin: 10/28/22 08:51 Dose: 1 mg Documented By: DEANA(2) Ondansetron HCl (Ondansetron 4 Mg/2 Ml Inj) 4 mg IV NOW ONE Stop: 10/24/22 22:41 Last Admin: 10/24/22 23:17 Dose: 4 mg Documented By: VIVEK Ondansetron HCl (Ondansetron 4 Mg Odt) 4 mg SL NOW ONE Stop: 10/27/22 09:39 Last Admin: 10/27/22 09:43 Dose: 4 mg Documented By: PHYLLIS Ondansetron HCl (Ondansetron 4 Mg Odt) 4 mg SL NOW ONE Stop: 10/28/22 08:45 Last Admin: 10/28/22 08:51 Dose: 4 mg Documented By: DEANA(2) Vital Signs Vital signs: Vital Signs - 8 hr 10/28/22 15:19 Pulse Rate 93 H Blood Pressure 125/88 Pulse Oximetry 95 Oxygen Delivery Method Room Air <Elvis Peterson MD - Last Filed: 11/03/22 08:22> Course Course Narrative: October 28, 2022 at 7:[address] Mcgovern, patient is awaiting for pl acement. Has been seen by social work. However patient does have COVID and today would be day 5 but however patient is asymptomatic. Patient has had very bad anxiety. Has received Ativan here. Patient at this time does desire to pursue placement Orders Ordered: Discontinued Medications Clonazepam (Clonazepam 0.5 Mg Tablet) 1 mg PO NOW ONE Stop: 10/24/22 22:41 Last Admin: 10/24/22 23:16 Dose: 1 mg Documented By: VIVEK Clonazepam (Clonazepam 0.5 Mg Tablet) 0.5 mg PO NOW ONE Stop: 10/25/22 14:07 Last Admin: 10/25/22 14:11 Dose: 0.5 mg Documented By: VIVEK(2) Sodium Chloride (Normal Saline 0.9%) 1,000 mls @ 1,000 mls/hr IV BOLUS ONE Stop: 10/24/22 23:39 Last Infusion: 10/25/22 01:08 Dose: 0 mls/hr Documented By: Admin: 10/24/22 23:17 Dose: 1,000 mls/hr Documented By: VIVEK Lorazepam (Lorazepam 0.5 Mg Tablet) 2 mg PO NOW ONE Stop: 10/25/22 00:23 Last Admin: 10/25/22 01:09 Dose: 2 mg Documented By: VIVEK Lorazepam (Lorazepam 0.5 Mg Tablet) 2 mg PO NOW ONE Stop: 10/25/22 23:23 Last Admin: 10/26/22 02:59 Dose: Not Given Documented By: ALEJANDRO Lorazepam (Lorazepam 0.5 Mg Tablet) 1 mg PO NOW ONE Stop: 10/26/22 16:10 Last Admin: 10/26/22 16:14 Dose: 1 mg Documented By: DEANA Lorazepam (Lorazepam 0.5 Mg Tablet) 1 mg PO NOW ONE Stop: 10/27/22 09:40 Last Admin: 10/27/22 09:45 Dose: 1 mg Documented By: PHYLLIS Lorazepam (Lorazepam 0.5 Mg Tablet) 1 mg PO NOW ONE Stop: 10/28/22 08:48 Last Admin: 10/28/22 08:51 Dose: 1 mg Documented By: DEANA(2) Ondansetron HCl (Ondansetron 4 Mg/2 Ml Inj) 4 mg IV NOW ONE Stop: 10/24/22 22:41 Last Admin: 10/24/22 23:17 Dose: 4 mg Documented By: VIVEK Ondansetron HCl (Ondansetron 4 Mg Odt) 4 mg SL NOW ONE Stop: 10/27/22 09:39 Last Admin: 10/27/22 09:43 Dose: 4 mg Documented By: PHYLLIS Ondansetron HCl (Ondansetron 4 Mg Odt) 4 mg SL NOW ONE Stop: 10/28/22 08:45 Last Admin: 10/28/22 08:51 Dose: 4 mg Documented By: DEANA(2) Vital Signs Vital signs: Vital Signs - 8 hr 10/28/22 15:19 Pulse Rate 93 H Blood Pressure 125/88 Pulse Oximetry 95 Oxygen Delivery Method Room Air <Augusto Mcgovern DO - Last Filed: 10/28/22 15:40> Orders Ordered: Discontinued Medications Clonazepam (Clonazepam 0.5 Mg Tablet) 1 mg PO NOW ONE Stop: 10/24/22 22:41 Last Admin: 10/24/22 23:16 Dose: 1 mg Documented By: VIVEK Clonazepam (Clonazepam 0.5 Mg Tablet) 0.5 mg PO NOW ONE Stop: 10/25/22 14:07 Last Admin: 10/25/22 14:11 Dose: 0.5 mg Documented By: VIVEK(2) Sodium Chloride (Normal Saline 0.9%) 1,000 mls @ 1,000 mls/hr IV BOLUS ONE Stop: 10/24/22 23:39 Last Infusion: 10/25/22 01:08 Dose: 0 mls/hr Documented By: Admin: 10/24/22 23:17 Dose: 1,000 mls/hr Documented By: VIVEK Lorazepam (Lorazepam 0.5 Mg Tablet) 2 mg PO NOW ONE Stop: 10/25/22 00:23 Last Admin: 10/25/22 01:09 Dose: 2 mg Documented By: VIVEK Lorazepam (Lorazepam 0.5 Mg Tablet) 2 mg PO NOW ONE Stop: 10/25/22 23:23 Last Admin: 10/26/22 02:59 Dose: Not Given Documented By: ALEJANDRO Lorazepam (Lorazepam 0.5 Mg Tablet) 1 mg PO NOW ONE Stop: 10/26/22 16:10 Last Admin: 10/26/22 16:14 Dose: 1 mg Documented By: DEANA Lorazepam (Lorazepam 0.5 Mg Tablet) 1 mg PO NOW ONE Stop: 10/27/22 09:40 Last Admin: 10/27/22 09:45 Dose: 1 mg Documented By: PHYLLIS Lorazepam (Lorazepam 0.5 Mg Tablet) 1 mg PO NOW ONE Stop: 10/28/22 08:48 Last Admin: 10/28/22 08:51 Dose: 1 mg Documented By: DEANA(2) Ondansetron HCl (Ondansetron 4 Mg/2 Ml Inj) 4 mg IV NOW ONE Stop: 10/24/22 22:41 Last Admin: 10/24/22 23:17 Dose: 4 mg Documented By: SB Ondansetron HCl (Ondansetron 4 Mg Odt) 4 mg SL NOW ONE Stop: 10/27/22 09:39 Last Admin: 10/27/22 09:43 Dose: 4 mg Documented By: MLM Ondansetron HCl (Ondansetron 4 Mg Odt) 4 mg SL NOW ONE Stop: 10/28/22 08:45 Last Admin: 10/28/22 08:51 Dose: 4 mg Documented By: KB(2) Vital Signs Vital signs: Vital Signs - 8 hr 10/28/22 15:19 Pulse Rate 93 H Blood Pressure 125/88 Pulse Oximetry 95 Oxygen Delivery Method Room Air Medical Decision Making <Rand Cha MD - Last Filed: 11/04/22 13:37> Lab Data Result diagrams: 10/24/22 22:55 10/24/22 22:55 Labs: Lab Results 10/24/22 10/24/22 10/24/22 Range/Units 20:29 22:55 22:55 WBC 7.3 (4.5-11.0) X10^3/uL RBC 4.85 (4.5-5.9) X10^6/uL Hgb 13.8 (13.5-17.5) g/dL Hct 41.9 (41-53) % MCV 86.4 (80-100) fL MCH 28.3 (26-34) PG MCHC 32.8 (30-36) % RDW 13.4 (11.6-14.8) % Plt Count 230 (150-400) X10^3/uL Neut % (Auto) 50.9 (50-75) % Lymph % (Auto) 21.8 L (25-40) % Towns % (Auto) 25.3 H (3-14) % Eos % (Auto) 1.2 L (2-4) % Baso % (Auto) 0.8 (0-2) % Neut # (Auto) 3700 (3429-9530) /uL Lymph # (Auto) 1600 (9220-3812) /uL Towns # (Auto) 1800 H (0-900) /uL Eos # (Auto) 100 (0-450) /uL Baso # (Auto) 100 (0-100) /uL Sodium (137-145) mmol/L Potassium (3.4-5.1) mmol/L Chloride (98-107) mmol/L Carbon Dioxide (22-32) mmol/L BUN (9-20) mg/dL Creatinine (0.66-1.25) mg/dL Estimated GFR (>60) mL/min BUN/Creatinine Ratio (6-22) Glucose (70-100) mg/dL Calcium (8.4-10.2) mg/dL Phosphorus 4.1 (2.5-4.5) mg/dL Total Bilirubin (0.2-1.3) mg/dL AST (17-59) IU/L ALT (<50) IU/L Alkaline Phosphatase (38-126) U/L Total Protein (6.3-8.2) g/dL Albumin (3.5-5.0) g/dL Globulin (1.7-4.1) g/dL Albumin/Globulin Ratio (1.0-2.8) TSH (0.47-4.68) uIU/mL U Opiates 300ng/mL cut Negative (Negative) Ur Oxycodone Screen Negative (Negative) Urine Methadone Screen Negative (Negative) Ur Barbiturates Screen Negative (Negative) U Tricyclic Antidepress Negative (Negative) Ur Phencyclidine Scrn Negative (Negative) Ur Amphetamines Screen Negative (Negative) U Methamphetamines Scrn Negative (Negative) Ur MDMA Scrn (Ecstasy) Negative (Negative) U Benzodiazepines Scrn Negative (Negative) Urine Cocaine Screen Negative (Negative) U Marijuana (THC) Screen Negative (Negative) Chlamy pneumoniae PCR (Not Detect) Adenovirus (PCR) (Not Detect) B. pertussis DNA (PCR) (Not Detecte) B.parapertussis DNA PCR (Not Detecte) Coronavirus OC43 (PCR) (Not Detect) Coronavirus HKU1 (PCR) (Not Detect) Coronavirus 229E (PCR) (Not Detect) SARS-CoV-2 (PCR) (Negative) Coronavirus NL63 (PCR) (Not Detect) Human Metapneumovir PCR (Not Detect) Influenza A (RT-PCR) (NEGATIVE) Influenza Type A (PCR) (Not Detect) Influenza B (RT-PCR) (NEGATIVE) Influenza Type B (PCR) (Not Detect) M. pneumoniae (PCR) (Not Detect) Parainfluenza 1 (PCR) (Not Detect) Parainfluenza 2 (PCR) (Not Detect) Parainfluenza 3 (PCR) (Not Detect) Parainfluenza 4 (PCR) (Not Detect) RSV (PCR) (Negative) Entero/Rhino (PCR) (Not Detect) 10/24/22 10/24/22 10/24/22 Range/Units 22:55 22:55 23:20 WBC (4.5-11.0) X10^3/uL RBC (4.5-5.9) X10^6/uL Hgb (13.5-17.5) g/dL Hct (41-53) % MCV (80-100) fL MCH (26-34) PG MCHC (30-36) % RDW (11.6-14.8) % Plt Count (150-400) X10^3/uL Neut % (Auto) (50-75) % Lymph % (Auto) (25-40) % Towns % (Auto) (3-14) % Eos % (Auto) (2-4) % Baso % (Auto) (0-2) % Neut # (Auto) (7569-2869) /uL Lymph # (Auto) (0594-3074) /uL Towns # (Auto) (0-900) /uL Eos # (Auto) (0-450) /uL Baso # (Auto) (0-100) /uL Sodium 142 (137-145) mmol/L Potassium 3.8 (3.4-5.1) mmol/L Chloride 101 (98-107) mmol/L Carbon Dioxide 29 (22-32) mmol/L BUN 10 (9-20) mg/dL Creatinine 0.58 L (0.66-1.25) mg/dL Estimated GFR > 60 (>60) mL/min BUN/Creatinine Ratio 17.2 (6-22) Glucose 85 (70-100) mg/dL Calcium 9.4 (8.4-10.2) mg/dL Phosphorus (2.5-4.5) mg/dL Total Bilirubin 0.4 (0.2-1.3) mg/dL AST 23 (17-59) IU/L ALT 23 (<50) IU/L Alkaline Phosphatase 53 (38-126) U/L Total Protein 8.1 (6.3-8.2) g/dL Albumin 4.7 (3.5-5.0) g/dL Globulin 3.4 (1.7-4.1) g/dL Albumin/Globulin Ratio 1.4 (1.0-2.8) TSH 1.43 (0.47-4.68) uIU/mL U Opiates 300ng/mL cut (Negative) Ur Oxycodone Screen (Negative) Urine Methadone Screen (Negative) Ur Barbiturates Screen (Negative) U Tricyclic Antidepress (Negative) Ur Phencyclidine Scrn (Negative) Ur Amphetamines Screen (Negative) U Methamphetamines Scrn (Negative) Ur MDMA Scrn (Ecstasy) (Negative) U Benzodiazepines Scrn (Negative) Urine Cocaine Screen (Negative) U Marijuana (THC) Screen (Negative) Chlamy pneumoniae PCR (Not Detect) Adenovirus (PCR) (Not Detect) B. pertussis DNA (PCR) (Not Detecte) B.parapertussis DNA PCR (Not Detecte) Coronavirus OC43 (PCR) (Not Detect) Coronavirus HKU1 (PCR) (Not Detect) Coronavirus 229E (PCR) (Not Detect) SARS-CoV-2 (PCR) Positive H (Negative) Coronavirus NL63 (PCR) (Not Detect) Human Metapneumovir PCR (Not Detect) Influenza A (RT-PCR) Flu a negative (NEGATIVE) Influenza Type A (PCR) (Not Detect) Influenza B (RT-PCR) Flu b negative (NEGATIVE) Influenza Type B (PCR) (Not Detect) M. pneumoniae (PCR) (Not Detect) Parainfluenza 1 (PCR) (Not Detect) Parainfluenza 2 (PCR) (Not Detect) Parainfluenza 3 (PCR) (Not Detect) Parainfluenza 4 (PCR) (Not Detect) RSV (PCR) Negative (Negative) Entero/Rhino (PCR) (Not Detect) 10/26/22 Range/Units 11:30 WBC (4.5-11.0) X10^3/uL RBC (4.5-5.9) X10^6/uL Hgb (13.5-17.5) g/dL Hct (41-53) % MCV (80-100) fL MCH (26-34) PG MCHC (30-36) % RDW (11.6-14.8) % Plt Count (150-400) X10^3/uL Neut % (Auto) (50-75) % Lymph % (Auto) (25-40) % Towns % (Auto) (3-14) % Eos % (Auto) (2-4) % Baso % (Auto) (0-2) % Neut # (Auto) (9345-5930) /uL Lymph # (Auto) (0705-5084) /uL Towns # (Auto) (0-900) /uL Eos # (Auto) (0-450) /uL Baso # (Auto) (0-100) /uL Sodium (137-145) mmol/L Potassium (3.4-5.1) mmol/L Chloride (98-107) mmol/L Carbon Dioxide (22-32) mmol/L BUN (9-20) mg/dL Creatinine (0.66-1.25) mg/dL Estimated GFR (>60) mL/min BUN/Creatinine Ratio (6-22) Glucose (70-100) mg/dL Calcium (8.4-10.2) mg/dL Phosphorus (2.5-4.5) mg/dL Total Bilirubin (0.2-1.3) mg/dL AST (17-59) IU/L ALT (<50) IU/L Alkaline Phosphatase (38-126) U/L Total Protein (6.3-8.2) g/dL Albumin (3.5-5.0) g/dL Globulin (1.7-4.1) g/dL Albumin/Globulin Ratio (1.0-2.8) TSH (0.47-4.68) uIU/mL U Opiates 300ng/mL cut (Negative) Ur Oxycodone Screen (Negative) Urine Methadone Screen (Negative) Ur Barbiturates Screen (Negative) U Tricyclic Antidepress (Negative) Ur Phencyclidine Scrn (Negative) Ur Amphetamines Screen (Negative) U Methamphetamines Scrn (Negative) Ur MDMA Scrn (Ecstasy) (Negative) U Benzodiazepines Scrn (Negative) Urine Cocaine Screen (Negative) U Marijuana (THC) Screen (Negative) Chlamy pneumoniae PCR Not detected (Not Detect) Adenovirus (PCR) Not detected (Not Detect) B. pertussis DNA (PCR) Not detected (Not Detecte) B.parapertussis DNA PCR Not detected (Not Detecte) Coronavirus OC43 (PCR) Not detected (Not Detect) Coronavirus HKU1 (PCR) Not detected (Not Detect) Coronavirus 229E (PCR) Not detected (Not Detect) SARS-CoV-2 (PCR) Detected H (Negative) Coronavirus NL63 (PCR) Not detected (Not Detect) Human Metapneumovir PCR Not detected (Not Detect) Influenza A (RT-PCR) (NEGATIVE) Influenza Type A (PCR) Not detected (Not Detect) Influenza B (RT-PCR) (NEGATIVE) Influenza Type B (PCR) Not detected (Not Detect) M. pneumoniae (PCR) Not detected (Not Detect) Parainfluenza 1 (PCR) Not detected (Not Detect) Parainfluenza 2 (PCR) Not detected (Not Detect) Parainfluenza 3 (PCR) Not detected (Not Detect) Parainfluenza 4 (PCR) Not detected (Not Detect) RSV (PCR) Not detected (Negative) Entero/Rhino (PCR) Not detected (Not Detect) Urine Dip Bedside Urine Glucose Negative Bedside Urine Bilirubin - Negative Bedside Urine Ketone - Negative Urine Specific [place] 1.010 Bedside Urine Occult Blood - Negative Bedside Urine pH 7.5 Bedside Urine Protein - Negative Bedside Urine Urobilinogen - Negative Bedside Urine Nitrite - Negative Bedside Urine Leukocytes - Negative Esterase Point of care testing: Urine Dip Bedside Urine Glucose Negative Bedside Urine Bilirubin - Negative Bedside Urine Ketone - Negative Urine Specific [place] 1.010 Bedside Urine Occult Blood - Negative Bedside Urine pH 7.5 Bedside Urine Protein - Negative Bedside Urine Urobilinogen - Negative Bedside Urine Nitrite - Negative Bedside Urine Leukocytes - Negative Esterase ECG Data Interpretation: Interpreted by in sinus rhythm at a rate Of 94 QTC is 415 milliseconds No acute ischemic changes MDM Narrative Medical decision making narrative: 27-year-old gentleman with anxiety, OCD components to his anxiety, increasing agoraphobia components and eating disorder issues all of his issues have been significantly exacerbated over the last 2 weeks after a mild episode of gastroenteritis that has since resolved. I believe he would benefit from inpatient care and he is very open to this idea. His screening COVID test comes back positive. He is otherwise medically cleared and will ask perinatal social worker to evaluate for psychiatric admission. 1220 am patient is re-evaluated. Feeling better after fluids and Zofran and has in fact been able to drink 2 full glasses of apple juice. Discussed his incidentally positive COVID test with his partner. Again, I believe that disclosing the positive test to the patient this evening will exacerbate his current tenuous psychiatric state and his partner completely agrees. Discussed using additional sleeping medications and patient is amenable to this in a monitored situation such as the emergency department. Will give him 2 mg of Ativan and see if were able to allow him some sleep time. <Zeynep Oswald, DO - Last Filed: 10/30/22 19:16> Lab Data Labs: Lab Results 10/24/22 10/24/22 10/24/22 Range/Units 20:29 22:55 22:55 WBC 7.3 (4.5-11.0) X10^3/uL RBC 4.85 (4.5-5.9) X10^6/uL Hgb 13.8 (13.5-17.5) g/dL Hct 41.9 (41-53) % MCV 86.4 (80-100) fL MCH 28.3 (26-34) PG MCHC 32.8 (30-36) % RDW 13.4 (11.6-14.8) % Plt Count 230 (150-400) X10^3/uL Neut % (Auto) 50.9 (50-75) % Lymph % (Auto) 21.8 L (25-40) % Towns % (Auto) 25.3 H (3-14) % Eos % (Auto) 1.2 L (2-4) % Baso % (Auto) 0.8 (0-2) % Neut # (Auto) 3700 (2980-9319) /uL Lymph # (Auto) 1600 (4890-9377) /uL Towns # (Auto) 1800 H (0-900) /uL Eos # (Auto) 100 (0-450) /uL Baso # (Auto) 100 (0-100) /uL Sodium (137-145) mmol/L Potassium (3.4-5.1) mmol/L Chloride (98-107) mmol/L Carbon Dioxide (22-32) mmol/L BUN (9-20) mg/dL Creatinine (0.66-1.25) mg/dL Estimated GFR (>60) mL/min BUN/Creatinine Ratio (6-22) Glucose (70-100) mg/dL Calcium (8.4-10.2) mg/dL Phosphorus 4.1 (2.5-4.5) mg/dL Total Bilirubin (0.2-1.3) mg/dL AST (17-59) IU/L ALT (<50) IU/L Alkaline Phosphatase (38-126) U/L Total Protein (6.3-8.2) g/dL Albumin (3.5-5.0) g/dL Globulin (1.7-4.1) g/dL Albumin/Globulin Ratio (1.0-2.8) TSH (0.47-4.68) uIU/mL U Opiates 300ng/mL cut Negative (Negative) Ur Oxycodone Screen Negative (Negative) Urine Methadone Screen Negative (Negative) Ur Barbiturates Screen Negative (Negative) U Tricyclic Antidepress Negative (Negative) Ur Phencyclidine Scrn Negative (Negative) Ur Amphetamines Screen Negative (Negative) U Methamphetamines Scrn Negative (Negative) Ur MDMA Scrn (Ecstasy) Negative (Negative) U Benzodiazepines Scrn Negative (Negative) Urine Cocaine Screen Negative (Negative) U Marijuana (THC) Screen Negative (Negative) Chlamy pneumoniae PCR (Not Detect) Adenovirus (PCR) (Not Detect) B. pertussis DNA (PCR) (Not Detecte) B.parapertussis DNA PCR (Not Detecte) Coronavirus OC43 (PCR) (Not Detect) Coronavirus HKU1 (PCR) (Not Detect) Coronavirus 229E (PCR) (Not Detect) SARS-CoV-2 (PCR) (Negative) Coronavirus NL63 (PCR) (Not Detect) Human Metapneumovir PCR (Not Detect) Influenza A (RT-PCR) (NEGATIVE) Influenza Type A (PCR) (Not Detect) Influenza B (RT-PCR) (NEGATIVE) Influenza Type B (PCR) (Not Detect) M. pneumoniae (PCR) (Not Detect) Parainfluenza 1 (PCR) (Not Detect) Parainfluenza 2 (PCR) (Not Detect) Parainfluenza 3 (PCR) (Not Detect) Parainfluenza 4 (PCR) (Not Detect) RSV (PCR) (Negative) Entero/Rhino (PCR) (Not Detect) 10/24/22 10/24/22 10/24/22 Range/Units 22:55 22:55 23:20 WBC (4.5-11.0) X10^3/uL RBC (4.5-5.9) X10^6/uL Hgb (13.5-17.5) g/dL Hct (41-53) % MCV (80-100) fL MCH (26-34) PG MCHC (30-36) % RDW (11.6-14.8) % Plt Count (150-400) X10^3/uL Neut % (Auto) (50-75) % Lymph % (Auto) (25-40) % Towns % (Auto) (3-14) % Eos % (Auto) (2-4) % Baso % (Auto) (0-2) % Neut # (Auto) (0586-7360) /uL Lymph # (Auto) (9252-7260) /uL Towns # (Auto) (0-900) /uL Eos # (Auto) (0-450) /uL Baso # (Auto) (0-100) /uL Sodium 142 (137-145) mmol/L Potassium 3.8 (3.4-5.1) mmol/L Chloride 101 (98-107) mmol/L Carbon Dioxide 29 (22-32) mmol/L BUN 10 (9-20) mg/dL Creatinine 0.58 L (0.66-1.25) mg/dL Estimated GFR > 60 (>60) mL/min BUN/Creatinine Ratio 17.2 (6-22) Glucose 85 (70-100) mg/dL Calcium 9.4 (8.4-10.2) mg/dL Phosphorus (2.5-4.5) mg/dL Total Bilirubin 0.4 (0.2-1.3) mg/dL AST 23 (17-59) IU/L ALT 23 (<50) IU/L Alkaline Phosphatase 53 (38-126) U/L Total Protein 8.1 (6.3-8.2) g/dL Albumin 4.7 (3.5-5.0) g/dL Globulin 3.4 (1.7-4.1) g/dL Albumin/Globulin Ratio 1.4 (1.0-2.8) TSH 1.43 (0.47-4.68) uIU/mL U Opiates 300ng/mL cut (Negative) Ur Oxycodone Screen (Negative) Urine Methadone Screen (Negative) Ur Barbiturates Screen (Negative) U Tricyclic Antidepress (Negative) Ur Phencyclidine Scrn (Negative) Ur Amphetamines Screen (Negative) U Methamphetamines Scrn (Negative) Ur MDMA Scrn (Ecstasy) (Negative) U Benzodiazepines Scrn (Negative) Urine Cocaine Screen (Negative) U Marijuana (THC) Screen (Negative) Chlamy pneumoniae PCR (Not Detect) Adenovirus (PCR) (Not Detect) B. pertussis DNA (PCR) (Not Detecte) B.parapertussis DNA PCR (Not Detecte) Coronavirus OC43 (PCR) (Not Detect) Coronavirus HKU1 (PCR) (Not Detect) Coronavirus 229E (PCR) (Not Detect) SARS-CoV-2 (PCR) Positive H (Negative) Coronavirus NL63 (PCR) (Not Detect) Human Metapneumovir PCR (Not Detect) Influenza A (RT-PCR) Flu a negative (NEGATIVE) Influenza Type A (PCR) (Not Detect) Influenza B (RT-PCR) Flu b negative (NEGATIVE) Influenza Type B (PCR) (Not Detect) M. pneumoniae (PCR) (Not Detect) Parainfluenza 1 (PCR) (Not Detect) Parainfluenza 2 (PCR) (Not Detect) Parainfluenza 3 (PCR) (Not Detect) Parainfluenza 4 (PCR) (Not Detect) RSV (PCR) Negative (Negative) Entero/Rhino (PCR) (Not Detect) 10/26/22 Range/Units 11:30 WBC (4.5-11.0) X10^3/uL RBC (4.5-5.9) X10^6/uL Hgb (13.5-17.5) g/dL Hct (41-53) % MCV (80-100) fL MCH (26-34) PG MCHC (30-36) % RDW (11.6-14.8) % Plt Count (150-400) X10^3/uL Neut % (Auto) (50-75) % Lymph % (Auto) (25-40) % Towns % (Auto) (3-14) % Eos % (Auto) (2-4) % Baso % (Auto) (0-2) % Neut # (Auto) (0816-1622) /uL Lymph # (Auto) (3791-2475) /uL Towns # (Auto) (0-900) /uL Eos # (Auto) (0-450) /uL Baso # (Auto) (0-100) /uL Sodium (137-145) mmol/L Potassium (3.4-5.1) mmol/L Chloride (98-107) mmol/L Carbon Dioxide (22-32) mmol/L BUN (9-20) mg/dL Creatinine (0.66-1.25) mg/dL Estimated GFR (>60) mL/min BUN/Creatinine Ratio (6-22) Glucose (70-100) mg/dL Calcium (8.4-10.2) mg/dL Phosphorus (2.5-4.5) mg/dL Total Bilirubin (0.2-1.3) mg/dL AST (17-59) IU/L ALT (<50) IU/L Alkaline Phosphatase (38-126) U/L Total Protein (6.3-8.2) g/dL Albumin (3.5-5.0) g/dL Globulin (1.7-4.1) g/dL Albumin/Globulin Ratio (1.0-2.8) TSH (0.47-4.68) uIU/mL U Opiates 300ng/mL cut (Negative) Ur Oxycodone Screen (Negative) Urine Methadone Screen (Negative) Ur Barbiturates Screen (Negative) U Tricyclic Antidepress (Negative) Ur Phencyclidine Scrn (Negative) Ur Amphetamines Screen (Negative) U Methamphetamines Scrn (Negative) Ur MDMA Scrn (Ecstasy) (Negative) U Benzodiazepines Scrn (Negative) Urine Cocaine Screen (Negative) U Marijuana (THC) Screen (Negative) Chlamy pneumoniae PCR Not detected (Not Detect) Adenovirus (PCR) Not detected (Not Detect) B. pertussis DNA (PCR) Not detected (Not Detecte) B.parapertussis DNA PCR Not detected (Not Detecte) Coronavirus OC43 (PCR) Not detected (Not Detect) Coronavirus HKU1 (PCR) Not detected (Not Detect) Coronavirus 229E (PCR) Not detected (Not Detect) SARS-CoV-2 (PCR) Detected H (Negative) Coronavirus NL63 (PCR) Not detected (Not Detect) Human Metapneumovir PCR Not detected (Not Detect) Influenza A (RT-PCR) (NEGATIVE) Influenza Type A (PCR) Not detected (Not Detect) Influenza B (RT-PCR) (NEGATIVE) Influenza Type B (PCR) Not detected (Not Detect) M. pneumoniae (PCR) Not detected (Not Detect) Parainfluenza 1 (PCR) Not detected (Not Detect) Parainfluenza 2 (PCR) Not detected (Not Detect) Parainfluenza 3 (PCR) Not detected (Not Detect) Parainfluenza 4 (PCR) Not detected (Not Detect) RSV (PCR) Not detected (Negative) Entero/Rhino (PCR) Not detected (Not Detect) Urine Dip Bedside Urine Glucose Negative Bedside Urine Bilirubin - Negative Bedside Urine Ketone - Negative Urine Specific [place] 1.010 Bedside Urine Occult Blood - Negative Bedside Urine pH 7.5 Bedside Urine Protein - Negative Bedside Urine Urobilinogen - Negative Bedside Urine Nitrite - Negative Bedside Urine Leukocytes - Negative Esterase Point of care testing: Urine Dip Bedside Urine Glucose Negative Bedside Urine Bilirubin - Negative Bedside Urine Ketone - Negative Urine Specific [place] 1.010 Bedside Urine Occult Blood - Negative Bedside Urine pH 7.5 Bedside Urine Protein - Negative Bedside Urine Urobilinogen - Negative Bedside Urine Nitrite - Negative Bedside Urine Leukocytes - Negative Esterase MDM Narrative Medical decision making narrative: 27-year-old gentleman with anxiety, OCD components to his anxiety, increasing agoraphobia components and eating disorder issues all of his issues have been significantly exacerbated over the last 2 weeks after a mild episode of gastroenteritis that has since resolved. I believe he would benefit from inpatient care and he is very open to this idea. His screening COVID test comes back positive. He is otherwise medically cleared and will ask perinatal social worker to evaluate for psychiatric admission. 1220 am patient is re-evaluated. Feeling better after fluids and Zofran and has in fact been able to drink 2 full glasses of apple juice. Discussed his incidentally positive COVID test with his partner. Again, I believe that disclosing the positive test to the patient this evening will exacerbate his current tenuous psychiatric state and his partner completely agrees. Discussed using additional sleeping medications and patient is amenable to this in a monitored situation such as the emergency department. Will give him 2 mg of Ativan and see if were able to allow him some sleep time. Davidk 10/25/22: This is a 27-year-old male with anxiety, OCD components increasing agoraphobia and eating disorder that have been exacerbated over the last several weeks, patient felt he would benefit from inpatient care sounds like he is voluntary at this time. His COVID screening did test positive. Ilia holcomb was able to eat drink overnight as well some medication for anxiety and sleep. Plan for consultation with [facility] to see if there is possibility for placement patient is currently voluntary. Patient seen and evaluated independently by myself. Patient is anxious, we reviewed he is had longstanding issues that have been exacerbated with COVID and over the last 2 weeks with his gastroenteritis type symptoms they have resolved he did test positive for COVID today we reviewed all of his findings this did make him feel significantly more anxious. Patient does note that he when he was resting not sleeping he felt like he was replying conversations and that people were talking is very vivid al most dream but he states he was awake. He was concerned that maybe the benzodiazepine he received later in the evening at 2 mg maybe contributing, we discussed there is possibility but he also has pretty significant sleep deprivation getting sometimes just 4 hours nightly on a regular basis. Does have a counselor he follows with regularly he meets with her in person. He does not follow with anybody medically and has not been on any oral medications he states he was recommended and prescribed medications in his late teens. Patient and I discussed that he is likely to do well with his COVID infection, does become quite anxious and even worries that his anxiety will make the COVID infection worse we discussed that this is not the case. Patient and I discussed trying an additional dose of benzodiazepine at a lower dose or very low dose of Zyprexa, he elects to try the clonazepam and see if this is helpful to him. We did discuss he can try Zyprexa at lowest dose and see if it is helpful later this evening. germination worker has been unsuccessful at finding him voluntary placement because of his positive COVID infection unfortunately. Signed out to Dr. Semaj tenorio. Neil 10/27/22 27-year-old male with severe anxiety OCD increasing agoraphobia and eating disorder and positive for COVID. Today still feeling anxious and nauseous. Able to eat some but not a lot. Currently requesting some nausea medicine and Ativan. Social work is looking at placement however due to the COVID may require a 5 day quarantine. Patient does not feel safe going home at this time. Is doing much better and controlled setting such as the ED. Froilan 10/27/22 -patient received back in sign-out, still pending 5 days clearance, symptom-free from COVID prior to ability to place. No significant issues overnight. Signed out to Dr. Peterson <Sarah Trejo, DO - Last Filed: 10/29/22 07:12> Lab Data Labs: Lab Results 10/24/22 10/24/22 10/24/22 Range/Units 20:29 22:55 22:55 WBC 7.3 (4.5-11.0) X10^3/uL RBC 4.85 (4.5-5.9) X10^6/uL Hgb 13.8 (13.5-17.5) g/dL Hct 41.9 (41-53) % MCV 86.4 (80-100) fL MCH 28.3 (26-34) PG MCHC 32.8 (30-36) % RDW 13.4 (11.6-14.8) % Plt Count 230 (150-400) X10^3/uL Neut % (Auto) 50.9 (50-75) % Lymph % (Auto) 21.8 L (25-40) % Towns % (Auto) 25.3 H (3-14) % Eos % (Auto) 1.2 L (2-4) % Baso % (Auto) 0.8 (0-2) % Neut # (Auto) 3700 (3652-0540) /uL Lymph # (Auto) 1600 (5487-0176) /uL Towns # (Auto) 1800 H (0-900) /uL Eos # (Auto) 100 (0-450) /uL Baso # (Auto) 100 (0-100) /uL Sodium (137-145) mmol/L Potassium (3.4-5.1) mmol/L Chloride (98-107) mmol/L Carbon Dioxide (22-32) mmol/L BUN (9-20) mg/dL Creatinine (0.66-1.25) mg/dL Estimated GFR (>60) mL/min BUN/Creatinine Ratio (6-22) Glucose (70-100) mg/dL Calcium (8.4-10.2) mg/dL Phosphorus 4.1 (2.5-4.5) mg/dL Total Bilirubin (0.2-1.3) mg/dL AST (17-59) IU/L ALT (<50) IU/L Alkaline Phosphatase (38-126) U/L Total Protein (6.3-8.2) g/dL Albumin (3.5-5.0) g/dL Globulin (1.7-4.1) g/dL Albumin/Globulin Ratio (1.0-2.8) TSH (0.47-4.68) uIU/mL U Opiates 300ng/mL cut Negative (Negative) Ur Oxycodone Screen Negative (Negative) Urine Methadone Screen Negative (Negative) Ur Barbiturates Screen Negative (Negative) U Tricyclic Antidepress Negative (Negative) Ur Phencyclidine Scrn Negative (Negative) Ur Amphetamines Screen Negative (Negative) U Methamphetamines Scrn Negative (Negative) Ur MDMA Scrn (Ecstasy) Negative (Negative) U Benzodiazepines Scrn Negative (Negative) Urine Cocaine Screen Negative (Negative) U Marijuana (THC) Screen Negative (Negative) Chlamy pneumoniae PCR (Not Detect) Adenovirus (PCR) (Not Detect) B. pertussis DNA (PCR) (Not Detecte) B.parapertussis DNA PCR (Not Detecte) Coronavirus OC43 (PCR) (Not Detect) Coronavirus HKU1 (PCR) (Not Detect) Coronavirus 229E (PCR) (Not Detect) SARS-CoV-2 (PCR) (Negative) Coronavirus NL63 (PCR) (Not Detect) Human Metapneumovir PCR (Not Detect) Influenza A (RT-PCR) (NEGATIVE) Influenza Type A (PCR) (Not Detect) Influenza B (RT-PCR) (NEGATIVE) Influenza Type B (PCR) (Not Detect) M. pneumoniae (PCR) (Not Detect) Parainfluenza 1 (PCR) (Not Detect) Parainfluenza 2 (PCR) (Not Detect) Parainfluenza 3 (PCR) (Not Detect) Parainfluenza 4 (PCR) (Not Detect) RSV (PCR) (Negative) Entero/Rhino (PCR) (Not Detect) 10/24/22 10/24/22 10/24/22 Range/Units 22:55 22:55 23:20 WBC (4.5-11.0) X10^3/uL RBC (4.5-5.9) X10^6/uL Hgb (13.5-17.5) g/dL Hct (41-53) % MCV (80-100) fL MCH (26-34) PG MCHC (30-36) % RDW (11.6-14.8) % Plt Count (150-400) X10^3/uL Neut % (Auto) (50-75) % Lymph % (Auto) (25-40) % Towns % (Auto) (3-14) % Eos % (Auto) (2-4) % Baso % (Auto) (0-2) % Neut # (Auto) (6465-1234) /uL Lymph # (Auto) (8757-2486) /uL Towns # (Auto) (0-900) /uL Eos # (Auto) (0-450) /uL Baso # (Auto) (0-100) /uL Sodium 142 (137-145) mmol/L Potassium 3.8 (3.4-5.1) mmol/L Chloride 101 (98-107) mmol/L Carbon Dioxide 29 (22-32) mmol/L BUN 10 (9-20) mg/dL Creatinine 0.58 L (0.66-1.25) mg/dL Estimated GFR > 60 (>60) mL/min BUN/Creatinine Ratio 17.2 (6-22) Glucose 85 (70-100) mg/dL Calcium 9.4 (8.4-10.2) mg/dL Phosphorus (2.5-4.5) mg/dL Total Bilirubin 0.4 (0.2-1.3) mg/dL AST 23 (17-59) IU/L ALT 23 (<50) IU/L Alkaline Phosphatase 53 (38-126) U/L Total Protein 8.1 (6.3-8.2) g/dL Albumin 4.7 (3.5-5.0) g/dL Globulin 3.4 (1.7-4.1) g/dL Albumin/Globulin Ratio 1.4 (1.0-2.8) TSH 1.43 (0.47-4.68) uIU/mL U Opiates 300ng/mL cut (Negative) Ur Oxycodone Screen (Negative) Urine Methadone Screen (Negative) Ur Barbiturates Screen (Negative) U Tricyclic Antidepress (Negative) Ur Phencyclidine Scrn (Negative) Ur Amphetamines Screen (Negative) U Methamphetamines Scrn (Negative) Ur MDMA Scrn (Ecstasy) (Negative) U Benzodiazepines Scrn (Negative) Urine Cocaine Screen (Negative) U Marijuana (THC) Screen (Negative) Chlamy pneumoniae PCR (Not Detect) Adenovirus (PCR) (Not Detect) B. pertussis DNA (PCR) (Not Detecte) B.parapertussis DNA PCR (Not Detecte) Coronavirus OC43 (PCR) (Not Detect) Coronavirus HKU1 (PCR) (Not Detect) Coronavirus 229E (PCR) (Not Detect) SARS-CoV-2 (PCR) Positive H (Negative) Coronavirus NL63 (PCR) (Not Detect) Human Metapneumovir PCR (Not Detect) Influenza A (RT-PCR) Flu a negative (NEGATIVE) Influenza Type A (PCR) (Not Detect) Influenza B (RT-PCR) Flu b negative (NEGATIVE) Influenza Type B (PCR) (Not Detect) M. pneumoniae (PCR) (Not Detect) Parainfluenza 1 (PCR) (Not Detect) Parainfluenza 2 (PCR) (Not Detect) Parainfluenza 3 (PCR) (Not Detect) Parainfluenza 4 (PCR) (Not Detect) RSV (PCR) Negative (Negative) Entero/Rhino (PCR) (Not Detect) 10/26/22 Range/Units 11:30 WBC (4.5-11.0) X10^3/uL RBC (4.5-5.9) X10^6/uL Hgb (13.5-17.5) g/dL Hct (41-53) % MCV (80-100) fL MCH (26-34) PG MCHC (30-36) % RDW (11.6-14.8) % Plt Count (150-400) X10^3/uL Neut % (Auto) (50-75) % Lymph % (Auto) (25-40) % Towns % (Auto) (3-14) % Eos % (Auto) (2-4) % Baso % (Auto) (0-2) % Neut # (Auto) (5882-5130) /uL Lymph # (Auto) (3734-3091) /uL Towns # (Auto) (0-900) /uL Eos # (Auto) (0-450) /uL Baso # (Auto) (0-100) /uL Sodium (137-145) mmol/L Potassium (3.4-5.1) mmol/L Chloride (98-107) mmol/L Carbon Dioxide (22-32) mmol/L BUN (9-20) mg/dL Creatinine (0.66-1.25) mg/dL Estimated GFR (>60) mL/min BUN/Creatinine Ratio (6-22) Glucose (70-100) mg/dL Calcium (8.4-10.2) mg/dL Phosphorus (2.5-4.5) mg/dL Total Bilirubin (0.2-1.3) mg/dL AST (17-59) IU/L ALT (<50) IU/L Alkaline Phosphatase (38-126) U/L Total Protein (6.3-8.2) g/dL Albumin (3.5-5.0) g/dL Globulin (1.7-4.1) g/dL Albumin/Globulin Ratio (1.0-2.8) TSH (0.47-4.68) uIU/mL U Opiates 300ng/mL cut (Negative) Ur Oxycodone Screen (Negative) Urine Methadone Screen (Negative) Ur Barbiturates Screen (Negative) U Tricyclic Antidepress (Negative) Ur Phencyclidine Scrn (Negative) Ur Amphetamines Screen (Negative) U Methamphetamines Scrn (Negative) Ur MDMA Scrn (Ecstasy) (Negative) U Benzodiazepines Scrn (Negative) Urine Cocaine Screen (Negative) U Marijuana (THC) Screen (Negative) Chlamy pneumoniae PCR Not detected (Not Detect) Adenovirus (PCR) Not detected (Not Detect) B. pertussis DNA (PCR) Not detected (Not Detecte) B.parapertussis DNA PCR Not detected (Not Detecte) Coronavirus OC43 (PCR) Not detected (Not Detect) Coronavirus HKU1 (PCR) Not detected (Not Detect) Coronavirus 229E (PCR) Not detected (Not Detect) SARS-CoV-2 (PCR) Detected H (Negative) Coronavirus NL63 (PCR) Not detected (Not Detect) Human Metapneumovir PCR Not detected (Not Detect) Influenza A (RT-PCR) (NEGATIVE) Influenza Type A (PCR) Not detected (Not Detect) Influenza B (RT-PCR) (NEGATIVE) Influenza Type B (PCR) Not detected (Not Detect) M. pneumoniae (PCR) Not detected (Not Detect) Parainfluenza 1 (PCR) Not detected (Not Detect) Parainfluenza 2 (PCR) Not detected (Not Detect) Parainfluenza 3 (PCR) Not detected (Not Detect) Parainfluenza 4 (PCR) Not detected (Not Detect) RSV (PCR) Not detected (Negative) Entero/Rhino (PCR) Not detected (Not Detect) Urine Dip Bedside Urine Glucose Negative Bedside Urine Bilirubin - Negative Bedside Urine Ketone - Negative Urine Specific [place] 1.010 Bedside Urine Occult Blood - Negative Bedside Urine pH 7.5 Bedside Urine Protein - Negative Bedside Urine Urobilinogen - Negative Bedside Urine Nitrite - Negative Bedside Urine Leukocytes - Negative Esterase Point of care testing: Urine Dip Bedside Urine Glucose Negative Bedside Urine Bilirubin - Negative Bedside Urine Ketone - Negative Urine Specific [place] 1.010 Bedside Urine Occult Blood - Negative Bedside Urine pH 7.5 Bedside Urine Protein - Negative Bedside Urine Urobilinogen - Negative Bedside Urine Nitrite - Negative Bedside Urine Leukocytes - Negative Esterase MDM Narrative Medical decision making narrative: 27-year-old gentleman with anxiety, OCD components to his anxiety, increasing agoraphobia components and eating disorder issues all of his issues have been significantly exacerbated over the last 2 weeks after a mild episode of gastroenteritis that has since resolved. I believe he would benefit from inpatient care and he is very open to this idea. His screening COVID test comes back positive. He is otherwise medically cleared and will ask perinatal social worker to evaluate for psychiatric admission. 1220 am patient is re-evaluated. Feeling better after fluids and Zofran and has in fact been able to drink 2 full glasses of apple juice. Discussed his incidentally positive COVID test with his partner. Again, I believe that disclosing the positive test to the patient this evening will exacerbate his current tenuous psychiatric state and his partner completely agrees. Discussed using additional sleeping medications and patient is amenable to this in a monitored situation such as the emergency department. Will give him 2 mg of Ativan and see if were able to allow him some sleep time. Mank 10/25/22: This is a 27-year-old male with anxiety, OCD components increasing agoraphobia and eating disorder that have been exacerbated over the last several weeks, patient felt he would benefit from inpatient care sounds like he is voluntary at this time. His COVID screening did test positive. Patient was able to eat drink overnight as well some medication for anxiety and sleep. Plan for consultation with [facility] to see if there is possibility for placement patient is currently voluntary. Patient seen and evaluated independently by myself. Patient is anxious, we reviewed he is had longstanding issues that have been exacerbated with COVID and over the last 2 weeks with his gastroenteritis type symptoms they have resolved he did test positive for COVID today we reviewed all of his findings this did make him feel significantly more anxious. Patient does note that he when he was resting not sleeping he felt like he was replying conversations and that people were talking is very vivid almost dream but he states he was awake. He was concerned that maybe the benzodiazepine he received later in the evening at 2 mg maybe contributing, we discussed there is possibility but he also has pretty significant sleep deprivation getting sometimes just 4 hours nightly on a regular basis. Does have a counselor he follows with regularly he meets with her in person. He does not follow with anybody medically and has not been on any oral medications he states he was recommended and prescribed medications in his late teens. Patient and I discussed that he is likely to do well with his COVID infection, does become quite anxious and even worries that his anxiety will make the COVID infection worse we discussed that this is not the case. Patient and I discussed trying an additional dose of benzodiazepine at a lower dose or very low dose of Zyprexa, he elects to try the clonazepam and see if this is helpful to him. We did discuss he can try Zyprexa at lowest dose and see if it is helpful later this evening. germination worker has been unsuccessful at finding him voluntary placement because of his positive COVID infection unfortunately. Neil 10/27/22 27-year-old male with severe anxiety OCD increasing agoraphobia and eating disorder and positive for COVID. Today still feeling anxious and nauseous. Able to eat some but not a lot. Currently requesting some nausea medicine and Ativan. Social work is looking at placement however due to the COVID may require a 5 day quarantine. Patient does not feel safe going home at this time. Is doing much better and controlled setting such as the ED. <Elvis Peterson MD - Last Filed: 11/03/22 08:22> Differential Diagnosis Differential Diagnosis: Anxiety/depression/failure to thrive Lab Data Labs: Lab Results 10/24/22 10/24/22 10/24/22 Range/Units 20:29 22:55 22:55 WBC 7.3 (4.5-11.0) X10^3/uL RBC 4.85 (4.5-5.9) X10^6/uL Hgb 13.8 (13.5-17.5) g/dL Hct 41.9 (41-53) % MCV 86.4 (80-100) fL MCH 28.3 (26-34) PG MCHC 32.8 (30-36) % RDW 13.4 (11.6-14.8) % Plt Count 230 (150-400) X10^3/uL Neut % (Auto) 50.9 (50-75) % Lymph % (Auto) 21.8 L (25-40) % Towns % (Auto) 25.3 H (3-14) % Eos % (Auto) 1.2 L (2-4) % Baso % (Auto) 0.8 (0-2) % Neut # (Auto) 3700 (3427-1257) /uL Lymph # (Auto) 1600 (5458-4276) /uL [place] # (Auto) 1800 H (0-900) /uL Eos # (Auto) 100 (0-450) /uL Baso # (Auto) 100 (0-100) /uL Sodium (137-145) mmol/L Potassium (3.4-5.1) mmol/L Chloride (98-107) mmol/L Carbon Dioxide (22-32) mmol/L BUN (9-20) mg/dL Creatinine (0.66-1.25) mg/dL Estimated GFR (>60) mL/min BUN/Creatinine Ratio (6-22) Glucose (70-100) mg/dL Calcium (8.4-10.2) mg/dL Phosphorus 4.1 (2.5-4.5) mg/dL Total Bilirubin (0.2-1.3) mg/dL AST (17-59) IU/L ALT (<50) IU/L Alkaline Phosphatase (38-126) U/L Total Protein (6.3-8.2) g/dL Albumin (3.5-5.0) g/dL Globulin (1.7-4.1) g/dL Albumin/Globulin Ratio (1.0-2.8) TSH (0.47-4.68) uIU/mL U Opiates 300ng/mL cut Negative (Negative) Ur Oxycodone Screen Negative (Negative) Urine Methadone Screen Negative (Negative) Ur Barbiturates Screen Negative (Negative) U Tricyclic Antidepress Negative (Negative) Ur Phencyclidine Scrn Negative (Negative) Ur Amphetamines Screen Negative (Negative) U Methamphetamines Scrn Negative (Negative) Ur MDMA Scrn (Ecstasy) Negative (Negative) U Benzodiazepines Scrn Negative (Negative) Urine Cocaine Screen Negative (Negative) U Marijuana (THC) Screen Negative (Negative) Chlamy pneumoniae PCR (Not Detect) Adenovirus (PCR) (Not Detect) B. pertussis DNA (PCR) (Not Detecte) B.parapertussis DNA PCR (Not Detecte) Coronavirus OC43 (PCR) (Not Detect) Coronavirus HKU1 (PCR) (Not Detect) Coronavirus 229E (PCR) (Not Detect) SARS-CoV-2 (PCR) (Negative) Coronavirus NL63 (PCR) (Not Detect) Human Metapneumovir PCR (Not Detect) Influenza A (RT-PCR) (NEGATIVE) Influenza Type A (PCR) (Not Detect) Influenza B (RT-PCR) (NEGATIVE) Influenza Type B (PCR) (Not Detect) M. pneumoniae (PCR) (Not Detect) Parainfluenza 1 (PCR) (Not Detect) Parainfluenza 2 (PCR) (Not Detect) Parainfluenza 3 (PCR) (Not Detect) Parainfluenza 4 (PCR) (Not Detect) RSV (PCR) (Negative) Entero/Rhino (PCR) (Not Detect) 10/24/22 10/24/22 10/24/22 Range/Units 22:55 22:55 23:20 WBC (4.5-11.0) X10^3/uL RBC (4.5-5.9) X10^6/uL Hgb (13.5-17.5) g/dL Hct (41-53) % MCV (80-100) fL MCH (26-34) PG MCHC (30-36) % RDW (11.6-14.8) % Plt Count (150-400) X10^3/uL Neut % (Auto) (50-75) % Lymph % (Auto) (25-40) % Towns % (Auto) (3-14) % Eos % (Auto) (2-4) % Baso % (Auto) (0-2) % Neut # (Auto) (1924-0806) /uL Lymph # (Auto) (1301-6814) /uL Towns # (Auto) (0-900) /uL Eos # (Auto) (0-450) /uL Baso # (Auto) (0-100) /uL Sodium 142 (137-145) mmol/L Potassium 3.8 (3.4-5.1) mmol/L Chloride 101 (98-107) mmol/L Carbon Dioxide 29 (22-32) mmol/L BUN 10 (9-20) mg/dL Creatinine 0.58 L (0.66-1.25) mg/dL Estimated GFR > 60 (>60) mL/min BUN/Creatinine Ratio 17.2 (6-22) Glucose 85 (70-100) mg/dL Calcium 9.4 (8.4-10.2) mg/dL Phosphorus (2.5-4.5) mg/dL Total Bilirubin 0.4 (0.2-1.3) mg/dL AST 23 (17-59) IU/L ALT 23 (<50) IU/L Alkaline Phosphatase 53 (38-126) U/L Total Protein 8.1 (6.3-8.2) g/dL Albumin 4.7 (3.5-5.0) g/dL Globulin 3.4 (1.7-4.1) g/dL Albumin/Globulin Ratio 1.4 (1.0-2.8) TSH 1.43 (0.47-4.68) uIU/mL U Opiates 300ng/mL cut (Negative) Ur Oxycodone Screen (Negative) Urine Methadone Screen (Negative) Ur Barbiturates Screen (Negative) U Tricyclic Antidepress (Negative) Ur Phencyclidine Scrn (Negative) Ur Amphetamines Screen (Negative) U Methamphetamines Scrn (Negative) Ur MDMA Scrn (Ecstasy) (Negative) U Benzodiazepines Scrn (Negative) Urine Cocaine Screen (Negative) U Marijuana (THC) Screen (Negative) Chlamy pneumoniae PCR (Not Detect) Adenovirus (PCR) (Not Detect) B. pertussis DNA (PCR) (Not Detecte) B.parapertussis DNA PCR (Not Detecte) Coronavirus OC43 (PCR) (Not Detect) Coronavirus HKU1 (PCR) (Not Detect) Coronavirus 229E (PCR) (Not Detect) SARS-CoV-2 (PCR) Positive H (Negative) Coronavirus NL63 (PCR) (Not Detect) Human Metapneumovir PCR (Not Detect) Influenza A (RT-PCR) Flu a negative (NEGATIVE) Influenza Type A (PCR) (Not Detect) Influenza B (RT-PCR) Flu b negative (NEGATIVE) Influenza Type B (PCR) (Not Detect) M. pneumoniae (PCR) (Not Detect) Parainfluenza 1 (PCR) (Not Detect) Parainfluenza 2 (PCR) (Not Detect) Parainfluenza 3 (PCR) (Not Detect) Parainfluenza 4 (PCR) (Not Detect) RSV (PCR) Negative (Negative) Entero/Rhino (PCR) (Not Detect) 10/26/22 Range/Units 11:30 WBC (4.5-11.0) X10^3/uL RBC (4.5-5.9) X10^6/uL Hgb (13.5-17.5) g/dL Hct (41-53) % MCV (80-100) fL MCH (26-34) PG MCHC (30-36) % RDW (11.6-14.8) % Plt Count (150-400) X10^3/uL Neut % (Auto) (50-75) % Lymph % (Auto) (25-40) % Towns % (Auto) (3-14) % Eos % (Auto) (2-4) % Baso % (Auto) (0-2) % Neut # (Auto) (4270-8342) /uL Lymph # (Auto) (9778-8457) /uL Towns # (Auto) (0-900) /uL Eos # (Auto) (0-450) /uL Baso # (Auto) (0-100) /uL Sodium (137-145) mmol/L Potassium (3.4-5.1) mmol/L Chloride (98-107) mmol/L Carbon Dioxide (22-32) mmol/L BUN (9-20) mg/dL Creatinine (0.66-1.25) mg/dL Estimated GFR (>60) mL/min BUN/Creatinine Ratio (6-22) Glucose (70-100) mg/dL Calcium (8.4-10.2) mg/dL Phosphorus (2.5-4.5) mg/dL Total Bilirubin (0.2-1.3) mg/dL AST (17-59) IU/L ALT (<50) IU/L Alkaline Phosphatase (38-126) U/L Total Protein (6.3-8.2) g/dL Albumin (3.5-5.0) g/dL Globulin (1.7-4.1) g/dL Albumin/Globulin Ratio (1.0-2.8) TSH (0.47-4.68) uIU/mL U Opiates 300ng/mL cut (Negative) Ur Oxycodone Screen (Negative) Urine Methadone Screen (Negative) Ur Barbiturates Screen (Negative) U Tricyclic Antidepress (Negative) Ur Phencyclidine Scrn (Negative) Ur Amphetamines Screen (Negative) U Methamphetamines Scrn (Negative) Ur MDMA Scrn (Ecstasy) (Negative) U Benzodiazepines Scrn (Negative) Urine Cocaine Screen (Negative) U Marijuana (THC) Screen (Negative) Chlamy pneumoniae PCR Not detected (Not Detect) Adenovirus (PCR) Not detected (Not Detect) B. pertussis DNA (PCR) Not detected (Not Detecte) B.parapertussis DNA PCR Not detected (Not Detecte) Coronavirus OC43 (PCR) Not detected (Not Detect) Coronavirus HKU1 (PCR) Not detected (Not Detect) Coronavirus 229E (PCR) Not detected (Not Detect) SARS-CoV-2 (PCR) Detected H (Negative) Coronavirus NL63 (PCR) Not detected (Not Detect) Human Metapneumovir PCR Not detected (Not Detect) Influenza A (RT-PCR) (NEGATIVE) Influenza Type A (PCR) Not detected (Not Detect) Influenza B (RT-PCR) (NEGATIVE) Influenza Type B (PCR) Not detected (Not Detect) M. pneumoniae (PCR) Not detected (Not Detect) Parainfluenza 1 (PCR) Not detected (Not Detect) Parainfluenza 2 (PCR) Not detected (Not Detect) Parainfluenza 3 (PCR) Not detected (Not Detect) Parainfluenza 4 (PCR) Not detected (Not Detect) RSV (PCR) Not detected (Negative) Entero/Rhino (PCR) Not detected (Not Detect) Urine Dip Bedside Urine Glucose Negative Bedside Urine Bilirubin - Negative Bedside Urine Ketone - Negative Urine Specific [place] 1.010 Bedside Urine Occult Blood - Negative Bedside Urine pH 7.5 Bedside Urine Protein - Negative Bedside Urine Urobilinogen - Negative Bedside Urine Nitrite - Negative Bedside Urine Leukocytes - Negative Esterase Point of care testing: Urine Dip Bedside Urine Glucose Negative Bedside Urine Bilirubin - Negative Bedside Urine Ketone - Negative Urine Specific [place] 1.010 Bedside Urine Occult Blood - Negative Bedside Urine pH 7.5 Bedside Urine Protein - Negative Bedside Urine Urobilinogen - Negative Bedside Urine Nitrite - Negative Bedside Urine Leukocytes - Negative Esterase MDM Narrative Additional Information: October 28, 2022 at 7:00 p.m.. Appropriate for discharge. [facility] social work has seen patient and partner at bedside. Patient denies denies any SI or HI. I am also present for conversation and treatment plan. No hallucinations. No agitation patient is very calm and collected. Does desire discharge home. He has eaten here. He states clonazepam that was given here was more effective then Ativan. Lilian has treatment plan in place and patient and partner agree for follow up with primary care tomorrow for long-term medication and for overnight and the following day short course of clonazepam. Return precautions reviewed with patient and partner and they do agree with this plan. Mental health facilities will not accept patients with COVID less than 10 days' duration. Patient is on day 5. Patient does not want to wait here 5 more days. <Augusto Mcgovern DO - Last Filed: 10/28/22 15:40> Lab Data Labs: Lab Results 10/24/22 10/24/22 10/24/22 Range/Units 20:29 22:55 22:55 WBC 7.3 (4.5-11.0) X10^3/uL RBC 4.85 (4.5-5.9) X10^6/uL Hgb 13.8 (13.5-17.5) g/dL Hct 41.9 (41-53) % MCV 86.4 (80-100) fL MCH 28.3 (26-34) PG MCHC 32.8 (30-36) % RDW 13.4 (11.6-14.8) % Plt Count 230 (150-400) X10^3/uL Neut % (Auto) 50.9 (50-75) % Lymph % (Auto) 21.8 L (25-40) % Towns % (Auto) 25.3 H (3-14) % Eos % (Auto) 1.2 L (2-4) % Baso % (Auto) 0.8 (0-2) % Neut # (Auto) 3700 (6827-4395) /uL Lymph # (Auto) 1600 (0707-9077) /uL Towns # (Auto) 1800 H (0-900) /uL Eos # (Auto) 100 (0-450) /uL Baso # (Auto) 100 (0-100) /uL Sodium (137-145) mmol/L Potassium (3.4-5.1) mmol/L Chloride (98-107) mmol/L Carbon Dioxide (22-32) mmol/L BUN (9-20) mg/dL Creatinine (0.66-1.25) mg/dL Estimated GFR (>60) mL/min BUN/Creatinine Ratio (6-22) Glucose (70-100) mg/dL Calcium (8.4-10.2) mg/dL Phosphorus 4.1 (2.5-4.5) mg/dL Total Bilirubin (0.2-1.3) mg/dL AST (17-59) IU/L ALT (<50) IU/L Alkaline Phosphatase (38-126) U/L Total Protein (6.3-8.2) g/dL Albumin (3.5-5.0) g/dL Globulin (1.7-4.1) g/dL Albumin/Globulin Ratio (1.0-2.8) TSH (0.47-4.68) uIU/mL U Opiates 300ng/mL cut Negative (Negative) Ur Oxycodone Screen Negative (Negative) Urine Methadone Screen Negative (Negative) Ur Barbiturates Screen Negative (Negative) U Tricyclic Antidepress Negative (Negative) Ur Phencyclidine Scrn Negative (Negative) Ur Amphetamines Screen Negative (Negative) U Methamphetamines Scrn Negative (Negative) Ur MDMA Scrn (Ecstasy) Negative (Negative) U Benzodiazepines Scrn Negative (Negative) Urine Cocaine Screen Negative (Negative) U Marijuana (THC) Screen Negative (Negative) Chlamy pneumoniae PCR (Not Detect) Adenovirus (PCR) (Not Detect) B. pertussis DNA (PCR) (Not Detecte) B.parapertussis DNA PCR (Not Detecte) Coronavirus OC43 (PCR) (Not Detect) Coronavirus HKU1 (PCR) (Not Detect) Coronavirus 229E (PCR) (Not Detect) SARS-CoV-2 (PCR) (Negative) Coronavirus NL63 (PCR) (Not Detect) Human Metapneumovir PCR (Not Detect) Influenza A (RT-PCR) (NEGATIVE) Influenza Type A (PCR) (Not Detect) Influenza B (RT-PCR) (NEGATIVE) Influenza Type B (PCR) (Not Detect) M. pneumoniae (PCR) (Not Detect) Parainfluenza 1 (PCR) (Not Detect) Parainfluenza 2 (PCR) (Not Detect) Parainfluenza 3 (PCR) (Not Detect) Parainfluenza 4 (PCR) (Not Detect) RSV (PCR) (Negative) Entero/Rhino (PCR) (Not Detect) 10/24/22 10/24/22 10/24/22 Range/Units 22:55 22:55 23:20 WBC (4.5-11.0) X10^3/uL RBC (4.5-5.9) X10^6/uL Hgb (13.5-17.5) g/dL Hct (41-53) % MCV (80-100) fL MCH (26-34) PG MCHC (30-36) % RDW (11.6-14.8) % Plt Count (150-400) X10^3/uL Neut % (Auto) (50-75) % Lymph % (Auto) (25-40) % Towns % (Auto) (3-14) % Eos % (Auto) (2-4) % Baso % (Auto) (0-2) % Neut # (Auto) (5955-2002) /uL Lymph # (Auto) (2443-6907) /uL Towns # (Auto) (0-900) /uL Eos # (Auto) (0-450) /uL Baso # (Auto) (0-100) /uL Sodium 142 (137-145) mmol/L Potassium 3.8 (3.4-5.1) mmol/L Chloride 101 (98-107) mmol/L Carbon Dioxide 29 (22-32) mmol/L BUN 10 (9-20) mg/dL Creatinine 0.58 L (0.66-1.25) mg/dL Estimated GFR > 60 (>60) mL/min BUN/Creatinine Ratio 17.2 (6-22) Glucose 85 (70-100) mg/dL Calcium 9.4 (8.4-10.2) mg/dL Phosphorus (2.5-4.5) mg/dL Total Bilirubin 0.4 (0.2-1.3) mg/dL AST 23 (17-59) IU/L ALT 23 (<50) IU/L Alkaline Phosphatase 53 (38-126) U/L Total Protein 8.1 (6.3-8.2) g/dL Albumin 4.7 (3.5-5.0) g/dL Globulin 3.4 (1.7-4.1) g/dL Albumin/Globulin Ratio 1.4 (1.0-2.8) TSH 1.43 (0.47-4.68) uIU/mL U Opiates 300ng/mL cut (Negative) Ur Oxycodone Screen (Negative) Urine Methadone Screen (Negative) Ur Barbiturates Screen (Negative) U Tricyclic Antidepress (Negative) Ur Phencyclidine Scrn (Negative) Ur Amphetamines Screen (Negative) U Methamphetamines Scrn (Negative) Ur MDMA Scrn (Ecstasy) (Negative) U Benzodiazepines Scrn (Negative) Urine Cocaine Screen (Negative) U Marijuana (THC) Screen (Negative) Chlamy pneumoniae PCR (Not Detect) Adenovirus (PCR) (Not Detect) B. pertussis DNA (PCR) (Not Detecte) B.parapertussis DNA PCR (Not Detecte) Coronavirus OC43 (PCR) (Not Detect) Coronavirus HKU1 (PCR) (Not Detect) Coronavirus 229E (PCR) (Not Detect) SARS-CoV-2 (PCR) Positive H (Negative) Coronavirus NL63 (PCR) (Not Detect) Human Metapneumovir PCR (Not Detect) Influenza A (RT-PCR) Flu a negative (NEGATIVE) Influenza Type A (PCR) (Not Detect) Influenza B (RT-PCR) Flu b negative (NEGATIVE) Influenza Type B (PCR) (Not Detect) M. pneumoniae (PCR) (Not Detect) Parainfluenza 1 (PCR) (Not Detect) Parainfluenza 2 (PCR) (Not Detect) Parainfluenza 3 (PCR) (Not Detect) Parainfluenza 4 (PCR) (Not Detect) RSV (PCR) Negative (Negative) Entero/Rhino (PCR) (Not Detect) 10/26/22 Range/Units 11:30 WBC (4.5-11.0) X10^3/uL RBC (4.5-5.9) X10^6/uL Hgb (13.5-17.5) g/dL Hct (41-53) % MCV (80-100) fL MCH (26-34) PG MCHC (30-36) % RDW (11.6-14.8) % Plt Count (150-400) X10^3/uL Neut % (Auto) (50-75) % Lymph % (Auto) (25-40) % Towns % (Auto) (3-14) % Eos % (Auto) (2-4) % Baso % (Auto) (0-2) % Neut # (Auto) (1297-9846) /uL Lymph # (Auto) (1342-3510) /uL Towns # (Auto) (0-900) /uL Eos # (Auto) (0-450) /uL Baso # (Auto) (0-100) /uL Sodium (137-145) mmol/L Potassium (3.4-5.1) mmol/L Chloride (98-107) mmol/L Carbon Dioxide (22-32) mmol/L BUN (9-20) mg/dL Creatinine (0.66-1.25) mg/dL Estimated GFR (>60) mL/min BUN/Creatinine Ratio (6-22) Glucose (70-100) mg/dL Calcium (8.4-10.2) mg/dL Phosphorus (2.5-4.5) mg/dL Total Bilirubin (0.2-1.3) mg/dL AST (17-59) IU/L ALT (<50) IU/L Alkaline Phosphatase (38-126) U/L Total Protein (6.3-8.2) g/dL Albumin (3.5-5.0) g/dL Globulin (1.7-4.1) g/dL Albumin/Globulin Ratio (1.0-2.8) TSH (0.47-4.68) uIU/mL U Opiates 300ng/mL cut (Negative) Ur Oxycodone Screen (Negative) Urine Methadone Screen (Negative) Ur Barbiturates Screen (Negative) U Tricyclic Antidepress (Negative) Ur Phencyclidine Scrn (Negative) Ur Amphetamines Screen (Negative) U Methamphetamines Scrn (Negative) Ur MDMA Scrn (Ecstasy) (Negative) U Benzodiazepines Scrn (Negative) Urine Cocaine Screen (Negative) U Marijuana (THC) Screen (Negative) Chlamy pneumoniae PCR Not detected (Not Detect) Adenovirus (PCR) Not detected (Not Detect) B. pertussis DNA (PCR) Not detected (Not Detecte) B.parapertussis DNA PCR Not detected (Not Detecte) Coronavirus OC43 (PCR) Not detected (Not Detect) Coronavirus HKU1 (PCR) Not detected (Not Detect) Coronavirus 229E (PCR) Not detected (Not Detect) SARS-CoV-2 (PCR) Detected H (Negative) Coronavirus NL63 (PCR) Not detected (Not Detect) Human Metapneumovir PCR Not detected (Not Detect) Influenza A (RT-PCR) (NEGATIVE) Influenza Type A (PCR) Not detected (Not Detect) Influenza B (RT-PCR) (NEGATIVE) Influenza Type B (PCR) Not detected (Not Detect) M. pneumoniae (PCR) Not detected (Not Detect) Parainfluenza 1 (PCR) Not detected (Not Detect) Parainfluenza 2 (PCR) Not detected (Not Detect) Parainfluenza 3 (PCR) Not detected (Not Detect) Parainfluenza 4 (PCR) Not detected (Not Detect) RSV (PCR) Not detected (Negative) Entero/Rhino (PCR) Not detected (Not Detect) Urine Dip Bedside Urine Glucose Negative Bedside Urine Bilirubin - Negative Bedside Urine Ketone - Negative Urine Specific [place] 1.010 Bedside Urine Occult Blood - Negative Bedside Urine pH 7.5 Bedside Urine Protein - Negative Bedside Urine Urobilinogen - Negative Bedside Urine Nitrite - Negative Bedside Urine Leukocytes - Negative Esterase Point of care testing: Urine Dip Bedside Urine Glucose Negative Bedside Urine Bilirubin - Negative Bedside Urine Ketone - Negative Urine Specific [place] 1.010 Bedside Urine Occult Blood - Negative Bedside Urine pH 7.5 Bedside Urine Protein - Negative Bedside Urine Urobilinogen - Negative Bedside Urine Nitrite - Negative Bedside Urine Leukocytes - Negative Esterase MDM Narrative Medical decision making narrative: 27-year-old gentleman with anxiety, OCD components to his anxiety, increasing agoraphobia components and eating disorder issues all of his issues have been si gnificantly exacerbated over the last 2 weeks after a mild episode of gastroenteritis that has since resolved. I believe he would benefit from inpatient care and he is very open to this idea. His screening COVID test comes back positive. He is otherwise medically cleared and will ask perinatal social worker to evaluate for psychiatric admission. 1220 am patient is re-evaluated. Feeling better after fluids and Zofran and has in fact been able to drink 2 full glasses of apple juice. Discussed his inci dentally positive COVID test with his partner. Again, I believe that disclosing the positive test to the patient this evening will exacerbate his current tenuous psychiatric state and his partner completely agrees. Discussed using additional sleeping medications and patient is amenable to this in a monitored situation such as the emergency department. Will give him 2 mg of Ativan and see if were able to allow him some sleep time. Margrte 10/25/22: This is a 27-year-old male with anxiety, OCD components increasing agoraphobia and eating disorder that have been exacerbated over the last several weeks, patient felt he would benefit from inpatient care sounds like he is voluntary at this time. His COVID screening did test positive. Patient was able to eat drink overnight as well some medication for anxiety and sleep. Plan for consultation with [facility] to see if there is possibility for plac ement patient is currently voluntary. Patient seen and evaluated independently by myself. Patient is anxious, we reviewed he is had longstanding issues that have been exacerbated with COVID and over the last 2 weeks with his gastroenteritis type symptoms they have resolved he did test positive for COVID today we reviewed all of his findings this did make him feel significantly more anxious. Patient does note that he when he was resting not sleeping he felt like he was replying conversations and that people were talking is very vivid almost dream but he states he was awake. He was concerned that maybe the benzodiazepine he received later in the evening at 2 mg maybe contributing, we discussed there is possibility but he also has pretty significant sleep deprivation getting sometimes just 4 hours nightly on a regular basis. Does have a counselor he follows with regularly he meets with her in person. He does not follow with anybody medically and has not been on any oral medications he states he was recommended and prescribed medications in his late teens. Patient and I discussed that he is likely to do well with his COVID infection, does become quite anxious and even worries that his anxiety will make the COVID infection worse we discussed that this is not the case. Patient and I discussed trying an additional dose of benzodiazepine at a lower dose or very low dose of Zyprexa, he elects to try the clonazepam and see if this is helpful to him. We did discuss he can try Zyprexa at lowest dose and see if it is helpful later this evening. germination worker has been unsuccessful at finding him voluntary placement because of his positive COVID infection unfortunately. Eransalbador 10/27/22 27-year-old male with severe anxiety OCD increasing agoraphobia and eating disorder and positive for COVID. Today still feeling anxious and nauseous. Able to eat some but not a lot. Currently requesting some nausea medicine and Ativan. Social work is looking at placement however due to the COVID may require a 5 day quarantine. Patient does not feel safe going home at this time. Is doing much better and controlled setting such as the ED. Froilan 10/27/22 -patient received back in sign-out, still pending 5 days clearance, symptom-free from COVID prior to ability to place. No significant issues overnight. Signed out to Dr. Peterson Discharge Plan Departure Patient Disposition: Home Clinical Impression: Anxiety, COVID Obsessive compulsive disorder Qualifiers: Obsessive-compulsive disorder type: other Qualified Code(s): F42.8 - Other obsessive-compulsive disorder Eating disorder Qualifiers: Eating disorder type: unspecified eating disorder Qualified Code(s): F50.9 - Eating disorder, unspecified Instructions: DI for Anxiety -- Adult, DI for COVID-19 (Suspected or Confirmed ) Activity Restrictions/Additional Instructions: Please see family doctor tomorrow as planned out with social bailey Quintana, she will contact the office tomorrow for office appointment this week and to start new medications to help for your anxiety. Short course prescription for clonazepam has been provided for you until office appointment. Return if worse if any questions or concerns. Prescriptions: No Action clonazepam 0.5 mg tablet 0.5 mg PO BID Qty: 60 1RF ondansetron 4 mg tablet,disintegrating 4 mg PO Q8H PRN (Reason: nausea and vomiting) Qty: 60 11RF hydroxyzine HCl 10 mg tablet 10 mg PO QID Qty: 120 11RF fluoxetine [Prozac] 10 mg capsule 10 mg PO DAILY Qty: 30 11RF albuterol sulfate 90 mcg/actuation HFA aerosol inhaler 2 puff INHALATION Q4-6H PRN (Reason: shortness of breath or wheezing) Qty: 8.5 0RF Referrals: Miscellaneous,Doctor, MD [Primary Care Provider] - Visit Report Forms: Patient Portal/API
--- NOTE | 2022-10-24 23:15 | PC.NURSE ---
In room to start IV - draw labs and medicate pt - tolerated well
[2022-10-24] MEDS: clonazePAM 0.5 MG TABLET 1 MG PO (23:16)
[2022-10-24] MEDS: SODIUM CHLORIDE 0.9% 1,000 ML 1000 ML IV (23:17)
[2022-10-24] MEDS: ONDANSETRON 4 MG/2 ML INJ IV (23:17)
[2022-10-24 23:21] LABS: Add Manual Diff / Slide Review NO; Basophils Absolute Auto 100 /uL (0-100); Basophils Percent Auto 0.8 % (0-2); Eosinophils Absolute Auto 100 /uL (0-450); Eosinophils Percent Auto 1.2 % (2-4); Hematocrit 41.9 % (41-53); Hemoglobin 13.8 g/dL (13.5-17.5); Lymphocytes Absolute Auto 1600 /uL (1100-4500); Lymphocytes Percent Auto 21.8 % (25-40); Mean Corpuscular HGB Conc 32.8 % (30-36); Mean Corpuscular Hemoglobin 28.3 PG (26-34); Mean Corpuscular Volume 86.4 fL (80-100); Monocytes Absolute Auto 1800 /uL (0-900); Monocytes Percent Auto 25.3 % (3-14); Neutrophils Absolute Auto 3700 /uL (1500-7000); Neutrophils Percent Auto 50.9 % (50-75); Platelet Count 230 X10^3/uL (150-400); Red Blood Cell Count 4.85 X10^6/uL (4.5-5.9); Red Cell Distribution Width 13.4 % (11.6-14.8); White Blood Cell Count 7.3 X10^3/uL (4.5-11.0)
--- NOTE | 2022-10-24 23:30 | PC.NURSE ---
Pt's boyfriend to bedside
[2022-10-24 23:32] LABS: Alanine Aminotransferase 23 IU/L (<50); Albumin 4.7 g/dL (3.5-5.0); Albumin Globulin Ratio 1.4 (1.0-2.8); Alkaline Phosphatase 53 U/L (38-126); Aspartate Aminotransferase 23 IU/L (17-59); BUN Creatinine Ratio 17.2 (6-22); Bilirubin Total 0.4 mg/dL (0.2-1.3); Blood Urea Nitrogen 10 mg/dL (9-20); Calcium 9.4 mg/dL (8.4-10.2); Carbon Dioxide 29 mmol/L (22-32); Chloride 101 mmol/L (98-107); Estimated Glomerular Filt Rate > 60 mL/min (>60); Globulin 3.4 g/dL (1.7-4.1); Glucose 85 mg/dL (70-100); HEMOLYSIS 29 (0-50); Phosphorous 4.1 mg/dL (2.5-4.5); Potassium 3.8 mmol/L (3.4-5.1); Sodium 142 mmol/L (137-145); Total Protein 8.1 g/dL (6.3-8.2)
[2022-10-24 23:36] LABS: UR Morphine/Opiate cutoff 300 Negative (Negative); Ur Creatinine Normal (Normal); Ur Specific Gravity Normal (Normal); Urine Amphetamines Negative (Negative); Urine Barbiturates Negative (Negative); Urine Benzodiazepines Negative (Negative); Urine Cocaine Negative (Negative); Urine MDMA Negative (Negative); Urine Methadone Negative (Negative); Urine Methamphetamines Negative (Negative); Urine Phencyclidine Negative (Negative); Urine Tetrahydrocannabinol Negative (Negative); Urine pH Normal (Normal)
[2022-10-24 23:37] LABS: Urine Oxycodone Negative (Negative); Urine Tricyclic Antidepressant Negative (Negative)
[2022-10-25 00:04] LABS: Thyroid Stimulating Hormone 1.43 uIU/mL (0.47-4.68)
[2022-10-25 00:06] LABS: Influenza A - CEPHEID Flu A NEGATIVE (NEGATIVE); Influenza B - CEPHEID Flu B NEGATIVE (NEGATIVE); Respiratory Syncytial Virus Negative (Negative)
[2022-10-25 00:09] LABS: COVID-19 CEPHEID 4-PLEX PCR POSITIVE (Negative)
--- NOTE | 2022-10-25 00:15 | PC.NURSE ---
Resting quietly in NAD - tearful at times - speaks with RN - able to voice his concerns and fears - states that he has been trying to manage his anxiety and OCD for about the past 15 years on his own - began seeing a counselor about a year and a half ago - states that she does not have a specialty to help him manage his OCD - recently perseverating on eating - states that he worries about starving to - when he sits down to eat he becomes nauseas and loses his appetite and vomits - states that he has been eating about 1000 calories a day at the most - has a past history of bulimia when younger - states that he has not binged and purged in years - states that he also has a past history of cutting but has not done that in years as well - has healed scar lines noted to forearm - no open or recent victoria noted - states that he feels at a loss on how to get better - does not want to be so depressed but all his coping tactics are no longer helping - listened with a quiet calming demeanor - reassured pt
--- NOTE | 2022-10-25 01:00 | PC.NURSE ---
In to medicate the patient - boyfriend remains at bedside
[2022-10-25] MEDS: LORazepam 0.5 MG TABLET 2 MG PO (01:09)
--- NOTE | 2022-10-25 01:15 | PC.NURSE ---
the patient states that he feels a little better at this time and not as much in his head - states that he is not concerned with eating/starving to - states that the applejuice given to him earlier with his medication tasted really good and he would like to eat something - given sherbert and string cheese and more apple juice - ate without concern - no N/V
--- NOTE | 2022-10-25 01:45 | PC.NURSE ---
spent some time with the patient and his boyfriend - allowed the patient to speak his needs and concerns and fears - the patient verbalizes feeling better - boyfriend at bedside very supportive - comfort voiced by patient - appears more relaxed
--- NOTE | 2022-10-25 02:30 | PC.NURSE ---
Boyfriend at bedside - no needs voiced at this time - doing better
--- NOTE | 2022-10-25 03:15 | PC.NURSE ---
resting quietly in NAD - eyes closed - respirations equal and unlabored bilaterally - boyfriend left for the evening
--- NOTE | 2022-10-25 04:00 | PC.NURSE ---
No changes in pt status at this time
--- NOTE | 2022-10-25 04:45 | PC.NURSE ---
No changes in pt status - awaiting social work evaluation in the morning
--- NOTE | 2022-10-25 05:30 | PC.NURSE ---
No changes in pt status at this time
--- NOTE | 2022-10-25 06:15 | PC.NURSE ---
In to check patient - sitting upright - appears better - states that he is feeling better at this time - denies feeling s/sx of hypotension - states that he feels off and sleepy when his BP drops - has not felt that way all night - alert and oriented - PWD with respirations equal and unlabored bilaterally
--- NOTE | 2022-10-25 06:15 | PC.NURSE ---
Pt awake - states that he is feeling somewhat better - given po food and fluid - using his tablet at this time - no needs voiced
[2022-10-25 06:27] VITALS: BP 105/66; PULSE 83; O2SAT 99
[2022-10-25 06:57] VITALS: BP 124/76; PULSE 101; O2SAT 100
--- NOTE | 2022-10-25 07:00 | PC.NURSE ---
Report to Yomi RN - care relinquished at this time
[2022-10-25 13:00] VITALS: BP 114/77; PULSE 108; O2SAT 96
--- NOTE | 2022-10-25 13:03 | PC.NURSE ---
Pt reporting increased anxiety at this time. States when I close my eyes I'm seeing very vivid dreams. I can hear people talking to me. When asked what he was hearing, he states It's hard to remember. One time it was a person telling me about a sale at at store. Denies that voices are telling him to hurt himself or anyone else. Also continues to deny any current thoughts of SI/HI.
[2022-10-25] MEDS: clonazePAM 0.5 MG TABLET PO (14:11)
--- NOTE | 2022-10-25 14:49 | CM.SWNOTE ---
CARBURETOR SPECIALIST Assessment CARBURETOR SPECIALIST - Rehab/Pre Vocational Counselor Assessment CARBURETOR SPECIALIST/Rehab/Pre Vocational Counselor Assessment Time Spent with Patient Start date 10/25/22 Visit Start Time 10:25 End date 10/25/22 Visit End Time 11:00 Total time Care Management spent on 35 min patient visit-in minutes Mental Health Screening Include Onset, Duration, Intensity Presenting Problem Patient presents to the ED due to concern for anxiety, fear of eating, not being able to eat and concern for his safety . Patient endorses concern he is starving himself but wants to nourish his body. Patient endorses hx of intrusive thoughts, SI and hx of self harm. Patient has been able to eat in ED and patient is seeking inpatient hospitalization for crisis management. Precipitating Event(s) Patient endorses that for the last two years his Anxiety related to covid, food intake and his wellbeing have increased. Patient had previous presentation to ED related to anxiety and similar concerns on 10/20/22 and 10/21/22 as well. Patient Strengths Patient is seeking help, has supports and patient endorses I want to live, that's why I' m here Current Behavioral Health Provider(s) Patient sees therapist Kristine Bloom, Provider, Ph. # Rayshawn Abraham CARBURETOR SPECIALIST, [facility] (ph. # [phone]) Patient endorses he sees patient weekly, but is concerned patient may retire soon. Patient endorses that therapist specializes in trauma and patient has engaged in EMDR and talk therapy, patient reports therapist does not specialize in OCD or eating disorders. Psych. Hx Mental Health and Chemical Patient endorses hx of Anxiety Dependency , OCD, SI, and self harm. Patient endorses hx of eating disorder in high school and concern for disordered eating. Patient denies ETOH or substance use because he is afraid how it will impact patient. Family Hx of Behavioral Abuse Patient endorses hx of trauma, but does not disclose details . Patient endorses fear of germs and washing hands until they bled when he was as young as 7 y/o. Psychiatric Hospitalizations (date(s)/ No reported hx. location) Psychosocial information & Support Patient is 27 y/o male who Systems resides with life partner in [place]. Patient endorses he moved from [place] recently and denies friends or other family supports. Patient endorses that his therapist is a support. School/Work Patient is currently unemployed Legal Concerns Legal Matters - Outstanding Issues None reported Mental Status Orientation (Person/Place/Time) A/Ox4 Stated Mood ok Patient endorses he is feeling better than last night . Affect (Congruent with Mood?) Anxious at times, euthymic, full range, congruent with mood Thought Content - Specify/Describe Patient initially denies Obsessions, Delusions, Hallucinations visual and auditory hallucinations. Patient endorses fear and paranoia that he will start having such hallucinations. Patient endorses anxiety about dying, getting sick and constant concern for his wellbeing. Later during ED encounter patient endorses visual hallucinations and seeing people when his eyes are closed, Patient endorses this to RN and later reports it to CARBURETOR SPECIALIST and ED provider. Thought Processes (Zsnckbz-Sozselac-Fhdy coherent, distracted by Gyaqlmeu-Rlmexvpj-Ewvmjvlkzn- anxiety/intrusive thoughts at Ilmhrptptgltsw-Sqeblon-Sfhjhsspzknd- times. Thought Blocking) Speech (Cmhkvy-Tptr-Sliwiyc-Rapid-Soft- normal/soft Loud-Pressured) Motor (Menegp-Lzprbpgho-Ipar-Other) normal Insight (Suuw-Fhxj-Tjna/Limited) fair Judgement (Jnbj-Kyqd-Mwjy/Limited) fair Impulse Control (Adequate-Impaired) adequate Memory (Xpaicnsdm-Kbzjny-Gwahlt, intact, not formally assessed Impaired-Intact) Concentration (Intact-Impaired) intact Attention (Intact-Impaired) intact Behavior (Appropriate-Inappropriate) appropriate Additional Comment Patient presents as cooperative and communicative Risk Assessment Suicidal Ideation (Plan) No Homicidal Ideation (Plan) No Comment Patient denies current SI and HI. Patient endorses hx of SI plan with intent to carry out plan when he was in college, patient endorses he had plan to use exit bag with helium which are used for peaceful deaths. Patient endorses his plan was to put a bag over his head and helium, patient denies current equipment or current plans or intent to carry out this plan. Patient endorses current concern that he doesn't want to and fear that he is dying. Patient states I do want to live, that is why I am here. Patient endorses hx of self harm by cutting self when he was 18. Patient endorses that his hx of an eating disorder has been harmful to self as well. Patient endorses he tries to eat but has concerns for N/V and then cycles with anxiety about not eating enough and concern for starving self. Patient has consumed food provided in ED during ED visit. Intervention Intervention CARBURETOR SPECIALIST enters room to meet with patient. Patient endorses concern for his anxiety, fear of eating, not being able to eat as well as concern for keeping food down. Patient endorses family history and concern for OCD dx and OCD tendencies & behaviors. Patient endorses fear of Covid and has been staying home primarily for the last two years avoiding nafisa the virus. Patient endorses concern for his safety and states that he has been trying to manage things on his own but endorses that he is seeking help and would like to go to voluntary inpatient hospitalization. Unfortunately patient is testing positive for Covid during this ED encounter which limits patient's access to voluntary inpatient placement. Patient was informed about covid positive diagnosis and presents with some anxiety, CARBURETOR SPECIALIST reaches out to patient's partner to provide patient with support during this time, ED provider to manage patient 's symptoms with anxiety medication. It is the opinion of this CARBURETOR SPECIALIST that patient would be appropriate for and benefit from voluntary inpatient hospitalization to address patient's concern for his safety, and to provide medication management and crisis stabilization. Due to patient's Covid positive diagnosis, this may be a barrier to seeking inpatient placement for patient. CARBURETOR SPECIALIST reviews the above with ED provider Dr. Oswald who indicates agreement and understanding. Plan RA Plan Plan A: CARBURETOR SPECIALIST to seek voluntary inpatient bed for patient Plan B: upon medical clearance patient to f/u with outpatient provider, crisis resources and f/u with outpatient resources related to eating disorder treatment.
--- NOTE | 2022-10-25 17:49 | CM.SWNOTE ---
PORT SURVEYOR Note Inpatient bed search: [facility]: it is reported they typically can take asymptomatic covid patients, but at this time they are full and do not have space to accommodate a private room quarantine covid positive patient. [facility] : They have beds but do not accept patients that are positive for covid. [facility] : They do not have beds currently and only accept covid patient's after 5 days of initial dx (if vaccinated) and once patient is symptom free. [facility]: No beds and does not accept covid positive patients. [facility]: Left requesting return call [facility]: They do not accept covid positive patients. [facility] (Ph. # [phone]) Left requesting return call [facility]: No answer [facility]: They do not accept covid positive patients [facility]: Left requesting return call [facility]: No answer [facility]: They do not accept patients with initial covid positive dx but they do have beds. [facility]: No answer [facility]: No answer PORT SURVEYOR reviews eating disorder treatment facilities and provides patient with list of facilities that serve patient demographics and accept patient's insurance. PORT SURVEYOR provides patient with list of providers that specialize in patient's diagnoses. Patient endorses interest in PCP, PORT SURVEYOR to seek PCP for patient upon next business day to schedule ED f/u PCP appt. PORT SURVEYOR attempted to call patient's current therapist but the phone numbers provided did not go through or lead to answering machine. PORT SURVEYOR enters room to meet with patient and he continues to endorse concern with going home this evening. Patient states I am worried if I go home I will spiral. Patient endorses concern with covid dx and sleeping and concern for being dependent on medications as patient's anxiety cycles during conversation. PORT SURVEYOR emails DCP team and will inform ED provider and MARKETING ASSISTANT MANAGER regarding patient. Plan: ED provider to f/u with patient tomorrow AM, MARKETING ASSISTANT MANAGER to f/u with possible inpatient options if appropriate. Patient likely to d/c to home tomorrow with outpatient f/u. NIKOS Lawler
[2022-10-25 18:29] VITALS: BP 119/81; PULSE 99; O2SAT 97
[2022-10-25 18:30] VITALS: PULSE 104; O2SAT 97
[2022-10-25 18:45] VITALS: BP 119/81; PULSE 105; RESP 16; O2SAT 98
--- NOTE | 2022-10-25 23:46 | PC.NURSE ---
Pt anxious about sleeping. Discussed available meds per order. Pt would like to think about it at this time. Ativan held at this time.
[2022-10-26] VITALS (7 sets, daily range): BP systolic 116–126; BP diastolic 73–86; PULSE 76–127; RESP 17; TEMP 36.8; O2SAT 96–99
[2022-10-26 13:24] LABS: Adenovirus Not Detected (Not Detect); Coronavirus 229E Not Detected (Not Detect); Coronavirus HKU1 Not Detected (Not Detect); Coronavirus NL 63 Not Detected (Not Detect); Coronavirus OC43 Not Detected (Not Detect); Human Metapneumovirus Not Detected (Not Detect); Human Rhinovirus/Enterovirus Not Detected (Not Detect); Influenza A Not Detected (Not Detect); Influenza B Not Detected (Not Detect); Parainfluenza Virus 1 Not Detected (Not Detect); Parainfluenza Virus 2 Not Detected (Not Detect); Parainfluenza Virus 3 Not Detected (Not Detect); Parainfluenza Virus 4 Not Detected (Not Detect); Respiratory Syncytial Virus Not Detected (Not Detect); SARS- CoV-2 Detected (Not Detecte)
[2022-10-26 13:25] LABS: B. parapertussis Not Detected (Not Detecte); Bordetella pertussis Not Detected (Not Detecte); Chlamydophila pneumoniae Not Detected (Not Detect); Mycoplasma pneumoniae Not Detected (Not Detect)
[2022-10-26] MEDS: LORazepam 0.5 MG TABLET 1 MG PO (16:14)
[2022-10-27] MEDS: ONDANSETRON 4 MG ODT SL (09:43)
[2022-10-27 09:44] VITALS: BP 124/78; PULSE 111; O2SAT 97
[2022-10-27] MEDS: LORazepam 0.5 MG TABLET 1 MG PO (09:45)
--- NOTE | 2022-10-27 10:27 | CM.SWNOTE ---
Addendum entered by SHELLY Clay 10/27/22 16:55: SW called [facility] to inquire if they received pt's referral and they confirmed that they did, but they are unable to accept because they do not have a program for eating disorders. SW called [facility] and inquired if they have received referral. [facility] confirmed that they did receive referral and reported that they occasionally take patients with eating disorders. SHELLY Clay Original Note: DRAIN CLEANER PLUMBER Note Inpatient bed search: SW called [facility] and they reported that covid positive patients need to be asymptomatic and 5 days out from initial covid positive test. SW reported that pt will be on day 5 tomorrow, 10/28 and admission coordinator advised SW to send in packet for their review. SW faxed packet to [facility] for their review. SW reviewed previous note and found that [facility] will accept covid positive patients 5 days from their first positive test, which will be tomorrow 10/28. SW faxed packet to [facility] for their review. SW called [facility] and they reported that a patient needs to be 7-10 days out from their initial positive covid test before they will accept. Pt will be 7 days out on 10/31. Plan: SW discussed with ED Provider, who believes pt is too acute to discharge home safely. SW will continue to search for inpatient psych beds. SHELLY Clay
[2022-10-27 17:00] VITALS: BP 120/74; PULSE 90; RESP 18; O2SAT 98
--- NOTE | 2022-10-27 17:39 | PC.NURSE ---
offered menu, pt. stated he ate dinner, took the dinner and lunch tray out of room. pt. stated they feel safer in this environment and the meds seem to be working.
[2022-10-27 22:01] VITALS: BP 124/78; PULSE 94; RESP 18; O2SAT 98
[2022-10-28] MEDS: LORazepam 0.5 MG TABLET 1 MG PO (08:51)
[2022-10-28] MEDS: ONDANSETRON 4 MG ODT SL (08:51)
--- NOTE | 2022-10-28 09:45 | PC.NURSE ---
Spoke with pt re: anxiety and coping skills. Pt is open to inpatient treatment and looking forward to next steps.
[2022-10-28 10:14] VITALS: PULSE 88; RESP 16; O2SAT 98
--- NOTE | 2022-10-28 14:55 | CM.SWNOTE ---
Addendum entered by SHELLY Clay 10/28/22 18:20: SW reviewed list of inpatient psychiatric facilities. [facility] advised SW to continue calling daily to inquire about private room availability until pt reaches day 10, when he will no longer need a private room. [facility] reported that pt needs to negative PCR tests before they will consider accepting. [facility] reports that pt needs a negative covid test prior to accepting pt. [facility] encouraged SW to call back in the morning when management is there to confirm specific policy details. SW called [facility] and they confirmed that pt needs to be 7-10 days out from first covid positive test. SW called [facility] and they confirmed that pt needs to be 10 days out from first covid positive test. SW called [facility] and they confirmed that a patient needs to be 7 days out from first covid positive test or have two negative PCR tests before they will consider. SW called [facility] and confirmed pt will need to be 10 days out from first covid positive test. SW met with pt and his partner to discuss options. SW advised that it is likely that pt will need to be 7-10 days out from first positive covid test before any psychiatric facility will accept. SW explored what it would be like if pt discharged home and tried to manage outpatient until his 10th day. Pt reports that he feels like he could manage but is anxious about it. Pt reports that his anxiety gets bad when he wakes up in the morning feeling nauseous. SW helped pt devise plan for when he feels nauseous. SW encouraged pt to slowly introduce food to his system in the morning, starting with small sips of something carbonated. ITZEL advised that pt should follow up with PCP as soon as possible to discuss starting on SSRI or other longterm medication option that is not a benzodiazepine. ITZEL explained that a maintenance medication could help patient stay at a baseline where he would only need lorazepam when he was in crisis. ITZEL explained that she could call pt's PCP in the morning to schedule an ED follow up appointment. ITZEL explained that if pt is not able to manage at home, he can always come back to emergency department. ITZEL discussed with ED Provider, who agrees pt is safe to discharge home. Plan: SW will reach out to pt's PCP tomorrow morning to schedule follow up appointment. Pt will discharge home with outpatient plan. SHELLY Clay Original Note: NIPPLE MAKER Note Inpatient bed search: SW called [facility] and they reported that they do not have any private rooms, which patient would need for 5 days until he reaches day 10 from initial positive covid test. SW called [facility] and they reported that they changed their policy and pts need to be 10 days out from initial positive covid test. SW met with ED provider and gave update. SW requested psych consult, which ED Provider will make. SW met with pt to provide update. Pt reports that he feels like he is in crisis and is disappointed that he will likely not be placed today. SW explained that each psychiatric facility has their own policy regarding covid, and that is out of our hands. SW provided pt list of inpatient facilities to call and self advocate. HSELLY Clay
[2022-10-28 15:19] VITALS: BP 125/88; PULSE 93; O2SAT 95
== END 2022-10-28 19:12 | disposition home or self-care (01) ==
PROVIDERS: Emergency Medicine; Emergency Provider Emergency Medicine
DX: F41.9 Anxiety disorder, unspecified (principal); U07.1 COVID-19; F42.9 Obsessive-compulsive disorder, unspecified; F40.00 Agoraphobia, unspecified; F50.9 Eating disorder, unspecified
CPT/HCPCS: 0241U; 36415; 80053; 80305; 81003; 84100; 84443; 85025; 87633; 93005; 96361; 96374; 99284; J2405

== ENCOUNTER 2024-09-28 08:54 | Emergency (ER) | payer OTHER, MEDICAID, SELFPAY ==
[2024-09-28 09:09] VITALS: O2SAT 98
--- NOTE | 2024-09-28 09:09 | ED.GENADULT ---
HPI - General Adult General Chief complaint: Psychiatric Symptoms Stated complaint: mental health Time Seen by Provider: 09/28/24 09:05 History of Present Illness HPI narrative: 29-year-old male with history of anxiety, has been prescribed regimen of Prozac and clonazepam, with as needed breakthrough hydroxyzine oral regimen, recent increased dose last week of his Prozac and clonazepam, still feeling quite anxious, feels that this regimen is not working effectively. He does not have thoughts of hurting himself or others. He denies fevers or chills, cough, shortness of breath. Related Data Previous Rx's Medication Instructions Recorded hydroxyzine HCl 10 mg tablet 10 mg PO QID anxiety #120 tabs 08/19/24 fluoxetine 40 mg capsule (Prozac) 40 mg PO DAILY #30 caps 09/23/24 clonazepam 0.5 mg tablet 0.5 mg PO TID PRN anxiety #90 tabs 09/26/24 ondansetron 4 mg disintegrating 4 mg PO Q6-8H PRN nausea and 09/26/24 tablet vomiting #30 tabs Allergies Allergy/AdvReac Type Severity Reaction Status Date / Time No Known Drug Allergies Allergy Verified 08/19/24 15:30 Review of Systems Review of Systems Narrative: See HPI Patient History Medical History (Updated 09/28/24 @ 09:30 by Alireza Russo MD) Obesity (BMI 30-39.9) Vapes nicotine containing substance Insomnia Obsessive compulsive disorder Depression (~2008) Anxiety (~2008) Family History Father Depression Mental health problem Mother Mental health problem Hypertension History of bipolar disorder Grandmother Hypertension Mental health problem Grandmother Mental health problem Social History Smoking Status: Former smoker alcohol intake: never substance use type: does not use Smoking Status: Former smoker alcohol intake frequency: other Substance Use Type: does not use Exam Narrative Exam Narrative: GENERAL: Well-developed patient, in mild distress. HEAD: Atraumatic. Normocephalic. EYES: Pupils equal round and reactive. Extraocular motions intact. No scleral icterus. No injection or drainage. ENT: Nose without bleeding, purulent drainage. Throat without erythema, tonsillar hypertrophy or exudate. Airway patent. NECK: Trachea midline. Non tender CARDIOVASCULAR: Regular rate and rhythm without murmurs, gallops, or rubs. RESPIRATORY: Clear to auscultation. Breath sounds equal bilaterally. No wheezes, rales, or rhonchi. GASTROINTESTINAL: Abdomen soft, non-tender, nondistended. EXTREMITIES: No edema or joint tenderness. BACK: Nontender without deformity or crepitance. No flank tenderness. NEURO: AOx3. Motor functions grossly nonfocal SKIN: No rash or erythema of visible areas Initial Vital Signs Initial Vital Signs: Vital Signs Pulse Oximetry 98 09/28/24 09:09 Course Orders Ordered: Discontinued Medications Hydroxyzine HCl (Hydroxyzine 50 Mg/Ml Inj) 50 mg IM NOW ONE Stop: 09/28/24 09:29 Last Admin: 09/28/24 09:50 Dose: 50 mg Documented By: ALAN Vital Signs Vital signs: Vital Signs - 8 hr 09/28/24 13:10 Pulse Rate 80 Respiratory Rate 16 Blood Pressure 125/80 Pulse Oximetry 98 Oxygen Delivery Method Room Air Medical Decision Making [facility] Narrative Medical decision making narrative: 29-year-old male with history of anxiety, recent increased dose of his maintenance Prozac and clonazepam, with breakthrough hydroxyzine oral regimen, he feels this is not adequately effective regimen, still feels quite anxious, after last dose increases last week. No SI/HI symptoms. We discussed antianxiety medications, he is interested in IM hydroxyzine dose for now, ordered. Hold on screening labs for now. Consultation with social media designer, given additional outpatient anxiety treatment resource options. Patient feels better, like to go home, advised to keep current antianxiety regimen for now, home with family. Discharge Plan Departure Patient Disposition: Home Clinical Impression: Anxiety Activity Restrictions/Additional Instructions: History of anxiety, recent increased dose of Prozac and clonazepam, with as needed oral hydroxyzine doses for exacerbations of anxiety. Apparently this is not felt to be effective enough. Intramuscular dose of hydroxyzine given here. disabilities services officer consultation obtained, given additional resources for outpatient management of anxiety. Discharged home with family. Return to this/nearest emergency department for any change worsening symptoms or any concerns prior Prescriptions: No Action clonazepam 0.5 mg tablet 0.5 mg PO TID PRN (Reason: anxiety) Qty: 90 1RF ondansetron 4 mg tablet,disintegrating 4 mg PO Q6-8H PRN (Reason: nausea and vomiting) Qty: 30 5RF hydroxyzine HCl 10 mg tablet 10 mg PO QID Qty: 120 11RF fluoxetine [Prozac] 40 mg capsule 40 mg PO DAILY Qty: 30 11RF Referrals: Shima Caban DO [Primary Care Provider] - Stand Alone Forms: Patient Portal/API/Survey
[2024-09-28 09:23] VITALS: BP 130/77; PULSE 87; RESP 18; TEMP 36.9; O2SAT 98; BMI 35.6
[2024-09-28 09:30] VITALS: BP 118/74; PULSE 84; O2SAT 97
[2024-09-28] MEDS: hydrOXYzine 50 MG/ML INJ IM (09:50)
[2024-09-28 10:41] VITALS: BP 119/79; PULSE 91; O2SAT 95
[2024-09-28 13:10] VITALS: BP 125/80; PULSE 80; RESP 16; O2SAT 98
--- NOTE | 2024-09-28 14:52 | CM.SWNOTE ---
ED SENIOR STOCK PLAN ADMINISTRATOR Assessment Note Patient is 29 y/o male who presents to ED with s/o due to concern for increasing debilitating anxiety. Patient had recent PCP appt with Dr. Caban on Thursday09/26/24 who recently increased patient's Fluoxetine from 30 to 40mg. Patient is also prescribed as needed Hydroxyzine and Clonzaxepam t.i.d .5mg. Patient endorses that he anxiety cycles and he is not able to eat sometimes, feels nausous and then is worried about not taking his medication and continues to fixate on his anxiety. Patient presents with hopelessness and concern that nothing will fix his anxiety. Patient presents with concern that his current medication are not working. Patient has therapist that he sees weekly Kristine Abraham, patient states that he canceled his appt today and called his PCP office who recommended he come to the ED. SENIOR STOCK PLAN ADMINISTRATOR enters room to meet with patient, patient presents as A/Ox4, present with s/o who patient consented to be present in room. S/o presents as support to patient. Patient has hx of Anxiety, OCD, depression, PTSD and hx of an eating disorder.Patient has hx of SI, had previous thoughts of plans two years ago. Patient denies current SI, SH or HI. Patient endorse his last self harm was 15 years ago. Patient has had similar episodes in the past. Patient sought out inpatient hospitalization due to acute anxiety and SI with thoughts of plans. Patient was unable to pursue inpatient hospitalization due to covid + dx at the time. Patient presents as fearful about inpatient hospitalization, he states he went directly to [facility] 2 years ago and was put in a room that he did not feel comfortable in, patient states he felt isolated and states the room was not clean. Patient presents with hopelessness, increased heightened anxiety in the last week and worries it will not get better. SENIOR STOCK PLAN ADMINISTRATOR discusses PHP with patient and patient agrees to [facility] PHP program. SENIOR STOCK PLAN ADMINISTRATOR calls [facility] and leaves . SENIOR STOCK PLAN ADMINISTRATOR to fax [facility] these records for review. SENIOR STOCK PLAN ADMINISTRATOR informs patient's PCP office of patient's presentation to ED and requests BH referral with as well, BH referral is submitted as well. Patient agrees to crisis f/u call this evening as well, SENIOR STOCK PLAN ADMINISTRATOR calls A crisis line and arranges the team to f/u with patient this evening via phone. Patient endorses he feels safe to d/c to home and is encouraged by plan. Plan: patient to d/c to home with s/o, [facility] PHP referral in place, patient to f/u with PCP and PCP to refer patient for [facility] Psychiatry if there is availability. Trista Corral, SUPERVISOR REAL ESTATE OFFICE
--- NOTE | 2024-09-28 17:41 | CM.SWNOTE ---
ED FREELANCE WRITER follow up Note FREELANCE WRITER receives VM from [facility] stating that they do not accept [facility] but they accept [facility], [facility] and [facility]. FREELANCE WRITER informs PCP office rn managed care regarding this and she states that [facility] plans to reach out to the patient on Thursday upon next business hours. FREELANCE WRITER calls patient regarding this and he states he was just on the phone with the crisis line. FREELANCE WRITER encourages patient to call the crisis line as needed. Patient endorses he is considering other PHP programs as well and can easily change his Medicaid coordinated program. patient states that his therapist Kristine is no longer accepting insurance after next month. FREELANCE WRITER encourages patient to call [facility] to pursue PHP if he wants to change his insurance. FREELANCE WRITER calls [facility] and leaves VM to inform them that patient is able to change his insurance. FREELANCE WRITER requests that [facility] contact patient on Thursday. Patient also states that he is wavering in considering PHP vs inpatient BH. If symptoms worsen patient may return to ED if he feels like he cannot manage his anxiety on an outpatient basis. Trista Corral, FRUIT BAR MAKER
== END 2024-09-28 13:11 | disposition home or self-care (01) ==
PROVIDERS: Emergency Provider Emergency Medicine; PCP Family Medicine
DX: F41.9 Anxiety disorder, unspecified (principal)
CPT/HCPCS: 96372; 99283; J3410

== ENCOUNTER → 2025-02-17 08:59 | Outpatient (CLI) | payer OTHER, SELFPAY ==
[2025-02-17 09:37] LABS: Hemoglobin 15.4 g/dL (13.5-17.5); Mean Corpuscular HGB Conc 34.3 % (30-36); Mean Corpuscular Hemoglobin 28.4 PG (26-34); Mean Corpuscular Volume 82.7 fL (80-100); Platelet Count 282 X10^3/uL (150-400); Red Blood Cell Count 5.44 X10^6/uL (4.5-5.9); Red Cell Distribution Width 14.2 % (11.6-14.8); White Blood Cell Count 8.7 X10^3/uL (4.5-11.0)
[2025-02-17 09:58] LABS: Alanine Aminotransferase 82 IU/L (<50); Albumin 4.8 g/dL (3.5-5.0); Albumin Globulin Ratio 1.6 (1.0-2.8); Alkaline Phosphatase 87 U/L (38-126); Aspartate Aminotransferase 38 IU/L (17-59); Bilirubin Total 0.6 mg/dL (0.2-1.3); Blood Urea Nitrogen 16 mg/dL (9-20); Calcium 9.9 mg/dL (8.4-10.2); Carbon Dioxide 27 mmol/L (22-32); Cholesterol 217 mg/dL (140-199); Estimated Glomerular Filt Rate > 60 mL/min (>60); Glucose 98 mg/dL (70-100); HDL Cholesterol 31 mg/dL (40-60); HEMOLYSIS < 15 (0-50); LDL Cholesterol Calculated 156 mg/dL (<100); Potassium 4.4 mmol/L (3.4-5.1); Sodium 140 mmol/L (137-145); Total Protein 7.8 g/dL (6.3-8.2); Triglycerides 149 mg/dL (35-150)
[2025-02-17 10:07] LABS: Chloride 104 mmol/L (98-107)
[2025-02-17 10:46] LABS: HIV 1 & 2 Ab/Ag 4th Gen Combo NEGATIVE (NEGATIVE); Hep C Virus Ab w/Reflex Quant NEGATIVE s/c (NEGATIVE)
== END ==
PROVIDERS: PCP Family Medicine; Referring Provider Family Medicine; Visit Provider Family Medicine
DX: F41.1 Generalized anxiety disorder (principal); F33.1 Major depressive disorder, recurrent, moderate; E66.9 Obesity, unspecified; F42.9 Obsessive-compulsive disorder, unspecified; Z72.0 Tobacco use
CPT/HCPCS: 36415; 80053; 80061; 83036; 85027; 86803; 87389